=== PATIENT | female | born 1975 | race American Indian/Alaskan Native ===

== ENCOUNTER 2016-07-23 08:49 | Inpatient (IN) | payer BC ==
[2016-07-23] MEDS ORDERED: XYLOCAINE 1% 20 mL ONE (08:58)
[2016-07-23] MEDS ORDERED: XYLOCAINE 1% 20 mL INFILTRATI ONE (09:00)
[2016-07-23] MEDS ORDERED: DIPRIVAN 10 MG/ML 100 ML IV ONE (09:04)
[2016-07-23] MEDS ORDERED: DIPRIVAN 10 MG/ML IV ONE ×2 (09:16→12:00)
[2016-07-23] MEDS ORDERED: ZOFRAN ONE (09:35)
[2016-07-23] MEDS ORDERED: MORPHINE ONE (09:35)
[2016-07-23] MEDS ORDERED: MORPHINE IV ONE ×2 (09:44→12:06)
[2016-07-23] MEDS ORDERED: ZOFRAN IV ONE (09:44)
[2016-07-23 10:03] LABS: Basophils % (Auto) 0.4 % (0.0-1.8); Eosinophils % (Auto) 0.7 % (0.0-4.3); Hematocrit 39.6 % (30.3-42.9); Hemoglobin 13.7 gm/dl (10.1-14.3); Mean Corpuscular HGB Conc 35 % (30-34); Mean Corpuscular Hemoglobin 28 pg (28-32); Mean Corpuscular Volume 82 fl (79-97); Platelet Count 346 K/mm3 (140-440); Red Blood Count 4.84 M/mm3 (3.65-5.03); Red Cell Distribution Width 14.3 % (13.2-15.2); White Blood Count 14.9 K/mm3 (4.5-11.0)
[2016-07-23 10:13] LABS: INR 1.06 (0.87-1.13)
[2016-07-23 10:14] LABS: Partial Thromboplastin Time 30.2 Sec. (24.2-36.6)
--- NOTE | 2016-07-23 10:24 | Admit Criteria Form ---
Admission Criteria Documentation: PNEUMOTHORAX Clinical Indications for Admission to Inpatient Care (Place 'X' for any and all applicable criteria): Admission for ANY ONE of the following (1),(2): [ ]I. Pneumothorax caused by associated lung disease (eg, COPD, cystic fibrosis, lung cancer, AIDS)(6): [ ]II. Recurrent episode of pneumothorax9 [ ]III. Traumatic pneumothorax (10)(11)(12) [X ]IV. Tension pneumothorax [ ]V. Hypotension [ ]. Respiratory distress [ ]VII. Pneumothorax exacerbating significant comorbidity (eg, heart failure) [ ]VIII. Inpatient admission required rather than observation care (see Pneumothorax: Observation Care guideline as appropriate) because of ANY ONE of the following (13)(14) [ ]a) Symptomatic pneumothorax that is progressive or persistent [ ]b) Infection identified (eg, pneumonia) that requires inpatient management [ ]c) Severe pain requiring acute inpatient management [ ]d) Supplemental O2 or respiratory therapy for over 24 hrs that are performable only in acute inpatient setting [ ]e) Chest tube placement with active evacuation (eg, suction, drainage) (15) [ ]f) Epidural analgesia [ ]g) Other condition, treatment or monitoring requiring inpatient admission Extended stay beyond goal length of stay may be needed for (24) [ ]a) Secondary pneumothorax [ ]b) Pneumothorax assoc with trauma(eg, multiple fractured ribs) [ ]c) Recurrent episode of primary spontaneous pneumothorax. [ ]d) Older patients [ ]e) Tension pneumothorax [ ]f) Pulmonary edema [ ]g) Persistent air leak The original [employer] content created by [employer] has been revised. The portions of the content which have been revised are identified through the use of italic text or in bold, and [facility] has neither reviewed nor approved the modified material. All other unmodified content is copyright [facility]. Please see references footnoted in the original [employer] edition 2016 Admission Criteria Met: Yes
[2016-07-23 10:25] LABS: Creatine Kinase MB 2.6 ng/mL (0.0-4.0)
[2016-07-23 10:26] LABS: Alanine Aminotransferase 14 units/L (7-56); Albumin/Globulin Ratio 1.2 %; Alkaline Phosphatase 45 units/L (35-129); BUN/Creatinine Ratio 13.33; Bilirubin,Total 0.4 mg/dL (0.1-1.2); Blood Urea Nitrogen 8 mg/dL (7-17); Calcium 8.7 mg/dL (8.4-10.2); Carbon Dioxide 26 mmol/L (22-30); Chloride 95.1 mmol/L (98-107); Creatine Kinase 199 units/L (30-135); Glucose 101 mg/dL (65-100); Magnesium 1.9 mg/dL (1.7-2.3); Potassium 3.3 mmol/L (3.6-5.0); Sodium 134 mmol/L (137-145); Total Protein 7.4 g/dL (6.3-8.2)
--- NOTE | 2016-07-23 10:29 | XRay Report ---
PORTABLE CHEST INDICATION: Chest tube placement. COMPARISON: None similar at this institution. FINDINGS: Portable, frontal chest radiograph demonstrates a small bore left chest tube tip projecting left paratracheal near the apex. Fairly well expanded lungs without large pleural effusions, pneumothorax or CHF. Normal cardiomediastinal silhouette. EKG leads. Unremarkable bones. CONCLUSION: Left chest tube without evidence of a pneumothorax, as described. Please correlate. Thank you for the opportunity to participate in this patient's care.
[2016-07-23 10:33] LABS: Urine Drugs of Abuse Note Disclamer
[2016-07-23 10:34] LABS: Anion Gap 16 mmol/L; Bilirubin,Direct < 0.2 mg/dL (0-0.2); Bilirubin,Indirect 0.2 mg/dL
--- NOTE | 2016-07-23 14:14 | Emergency Department Report ---
ED Shortness of Breath HPI - General Chief Complaint: Dyspnea/Respdistress Stated Complaint: CHEST TIGHTNESS/STAS Time Seen by Provider: 07/23/16 09:36 Source: patient Mode of arrival: Ambulatory Limitations: No Limitations - History of Present Illness Initial Comments: The patient was transferred in her own private vehicle after she was found to have a pneumothorax at a [place] clinic. Indeed, she told me that she stopped to fill up her tank. Patient presents to this facility significantly tachycardic. However she was not yet hypoxic. She complained of left-sided chest pain since Tuesday. She could not pinpoint an acute onset of pain. She noted that when she woke up in the morning that she had chest discomfort and had been short of breath prior to that the night before. She's had some occasional cough but nothing productive. She denied fever. The chest pain was not radiating. The patient denied smoking marijuana but does smoke cigarettes. She's never had a pneumothorax before. Review patient's x-ray which she carried here on CT indicates that she had he an 80 percent pneumothorax with some midline shift and air on the contralateral side of the cardiac silhouette. Technically, it did reveal a tension pneumothorax. MD Complaint: shortness of breath, cough, chest pain -: days(s) Severity: moderate Quality: aching Consistency: constant Improves With: nothing Worsens With: nothing Associated Symptoms: denies other symptoms (except as above indicated) - Related Data Home Medications Medication Instructions Recorded Confirmed Last Taken Lisinopril/Hydrochlorothiazide 1 tab PO QDAY 07/23/16 07/23/16 Unknown [Zestoretic 20-25 mg] valACYclovir [Valtrex] 500 mg PO DAILY 07/23/16 07/23/16 Unknown Allergies Allergy/AdvReac Type Severity Reaction Status Date / Time codeine Allergy Anaphylaxis Verified 07/23/16 09:05 ED Review of Systems ROS: Stated complaint: CHEST TIGHTNESS/STAS Other details as noted in HPI Constitutional: denies: chills, fever Eyes: denies: eye pain, eye discharge, vision change ENT: denies: ear pain, throat pain Respiratory: cough, shortness of breath. denies: wheezing Cardiovascular: chest pain. denies: palpitations Endocrine: no symptoms reported Gastrointestinal: denies: abdominal pain, nausea, diarrhea Genitourinary: denies: urgency, dysuria, discharge Musculoskeletal: denies: back pain, joint swelling, arthralgia Skin: denies: rash, lesions Neurological: denies: headache, weakness, paresthesias Psychiatric: denies: anxiety, depression Hematological/Lymphatic: denies: easy bleeding, easy bruising ED Past Medical Hx - Past Medical History Hx Hypertension: Yes - Surgical History Additional Surgical History: D&C 2012 - Social History Smoking Status: Current Every Day Smoker - Medications Home Medications: Home Medications Medication Instructions Recorded Confirmed Last Taken Type Lisinopril/Hydrochlorothiazide 1 tab PO QDAY 07/23/16 07/23/16 Unknown History [Zestoretic 20-25 mg] valACYclovir [Valtrex] 500 mg PO DAILY 07/23/16 07/23/16 Unknown History ED Physical Exam - General Limitations: No Limitations General appearance: alert, in no apparent distress - Head Head exam: Present: atraumatic, normocephalic - Eye Eye exam: Present: normal appearance, PERRL, EOMI. Absent: scleral icterus - ENT ENT exam: Present: mucous membranes moist - Neck Neck exam: Present: normal inspection - Respiratory Respiratory exam: Present: decreased breath sounds (very decreased breath sounds on the left). Absent: respiratory distress - Cardiovascular Cardiovascular Exam: Present: normal rhythm, tachycardia. Absent: systolic murmur, diastolic murmur, rubs, gallop - GI/Abdominal GI/Abdominal exam: Present: soft, normal bowel sounds. Absent: distended, tenderness, guarding, rebound, rigid - Extremities Exam Extremities exam: Present: normal inspection - Back Exam Back exam: Present: normal inspection - Neurological Exam Neurological exam: Present: alert, oriented X3, CN II-XII intact. Absent: motor sensory deficit - Psychiatric Psychiatric exam: Present: normal affect, normal mood - Skin Skin exam: Present: warm, dry, intact, normal color. Absent: rash ED Course Vital Signs 07/23/16 07/23/16 07/23/16 09:01 09:07 09:20 Temperature [ 98.3 F Intra-Procedure ] Temperature [ Post-Procedure] Temperature [ Pre-Procedure] Pulse Rate 132 H Pulse Rate [ 128 H Intra-Procedure ] Pulse Rate [ Post-Procedure] Pulse Rate [Pre -Procedure] Respiratory 24 17 Rate Respiratory 24 Rate [Intra- Procedure] Respiratory Rate [Post- Procedure] Respiratory Rate [Pre- Procedure] Blood Pressure 142/79 [Intra- Procedure] Blood Pressure [Post-Procedure ] Blood Pressure [Pre-Procedure] Blood Pressure [Right] O2 Sat by Pulse 94 97 Oximetry O2 Sat by Pulse 98 Oximetry [ Intra-Procedure ] O2 Sat by Pulse Oximetry [Post -Procedure] O2 Sat by Pulse Oximetry [Pre- Procedure] 07/23/16 07/23/16 07/23/16 09:25 10:04 11:15 Temperature [ Intra-Procedure ] Temperature [ 98.1 F Post-Procedure] Temperature [ 97.3 F L Pre-Procedure] Pulse Rate 110 H Pulse Rate [ Intra-Procedure ] Pulse Rate [ 118 H Post-Procedure] Pulse Rate [Pre 130 H -Procedure] Respiratory 18 Rate Respiratory Rate [Intra- Procedure] Respiratory 18 Rate [Post- Procedure] Respiratory 22 Rate [Pre- Procedure] Blood Pressure [Intra- Procedure] Blood Pressure 138/77 [Post-Procedure ] Blood Pressure 140/69 [Pre-Procedure] Blood Pressure 139/75 [Right] O2 Sat by Pulse 99 Oximetry O2 Sat by Pulse Oximetry [ Intra-Procedure ] O2 Sat by Pulse 98 Oximetry [Post -Procedure] O2 Sat by Pulse 97 Oximetry [Pre- Procedure] 07/23/16 12:16 Temperature [ Intra-Procedure ] Temperature [ Post-Procedure] Temperature [ Pre-Procedure] Pulse Rate 99 H Pulse Rate [ Intra-Procedure ] Pulse Rate [ Post-Procedure] Pulse Rate [Pre -Procedure] Respiratory 16 Rate Respiratory Rate [Intra- Procedure] Respiratory Rate [Post- Procedure] Respiratory Rate [Pre- Procedure] Blood Pressure [Intra- Procedure] Blood Pressure [Post-Procedure ] Blood Pressure [Pre-Procedure] Blood Pressure 128/75 [Right] O2 Sat by Pulse 100 Oximetry O2 Sat by Pulse Oximetry [ Intra-Procedure ] O2 Sat by Pulse Oximetry [Post -Procedure] O2 Sat by Pulse Oximetry [Pre- Procedure] - Chest Tube Chest Tube Location: fifth interspace Size of Palestinian Tube (cm): 0 (Cook catheter) Chest Tube Procedure: betadine prep Anesthesia: 1% Lidocaine w/ Epi Volume Anesthetic (ccs): 7 [place] of Air [place]: No Number of Attempts: 1 Tube Sutured to Skin: Yes Post Procedure CXR?: Yes (reinflation 100%) ED Medical Decision Making - Lab Data Result diagrams: 07/23/16 09:50 07/23/16 09:50 Laboratory Results - last 24 hr 07/23/16 07/23/16 07/23/16 09:50 09:50 09:50 WBC 14.9 H RBC 4.84 Hgb 13.7 Hct 39.6 MCV 82 MCH 28 MCHC 35 H RDW 14.3 Plt Count 346 Lymph % (Auto) 4.8 L [place] % (Auto) 7.5 H Eos % (Auto) 0.7 Baso % (Auto) 0.4 Lymph # 0.7 L [place] # 1.1 H Eos # 0.1 Baso # 0.1 Seg Neutrophils % 86.6 H Seg Neutrophils # 12.9 H PT 13.7 INR 1.06 APTT 30.2 Sodium 134 L Potassium 3.3 L Chloride 95.1 L Carbon Dioxide 26 Anion Gap 16 BUN 8 Creatinine 0.6 L Estimated GFR > 60 BUN/Creatinine Ratio 13.33 Glucose 101 H Calcium 8.7 Magnesium 1.9 Total Bilirubin 0.4 Direct Bilirubin < 0.2 Indirect Bilirubin 0.2 AST 23 ALT 14 Alkaline Phosphatase 45 Total Creatine Kinase 199 H CK-MB (CK-2) 2.6 CK-MB (CK-2) Rel Index 1.3 Troponin T < 0.010 Total Protein 7.4 Albumin 4.0 Albumin/Globulin Ratio 1.2 Urine Opiates Screen Urine Methadone Screen Ur Barbiturates Screen Ur Phencyclidine Scrn Ur Amphetamines Screen U Benzodiazepines Scrn Urine Cocaine Screen U Marijuana (THC) Screen Drugs of Abuse Note 07/23/16 10:31 WBC RBC Hgb Hct MCV MCH MCHC RDW Plt Count Lymph % (Auto) [place] % (Auto) Eos % (Auto) Baso % (Auto) Lymph # [place] # Eos # Baso # Seg Neutrophils % Seg Neutrophils # PT INR APTT Sodium Potassium Chloride Carbon Dioxide Anion Gap BUN Creatinine Estimated GFR BUN/Creatinine Ratio Glucose Calcium Magnesium Total Bilirubin Direct Bilirubin Indirect Bilirubin AST ALT Alkaline Phosphatase Total Creatine Kinase CK-MB (CK-2) CK-MB (CK-2) Rel Index Troponin T Total Protein Albumin Albumin/Globulin Ratio Urine Opiates Screen Presumptive negative Urine Methadone Screen Presumptive negative Ur Barbiturates Screen Presumptive negative Ur Phencyclidine Scrn Presumptive negative Ur Amphetamines Screen Presumptive negative U Benzodiazepines Scrn Presumptive negative Urine Cocaine Screen Presumptive negative U Marijuana (THC) Screen Presumptive negative Drugs of Abuse Note Disclamer - EKG Data -: EKG Interpreted by Ia EKG shows normal: sinus rhythm, axis, intervals, QRS complexes, ST-T waves Rate: tachycardia - EKG Data Interpretation: nonspecific ST-T wave charlene - Radiology Data interpreted by me: Post Cook catheter insertion shows complete reinflation of the patient's left lung. Critical Care Time: Yes Critical care time in (mins) excluding proc time.: 35 Critical care attestation.: If time is entered above; I have spent that time in minutes in the direct care of this critically ill patient, excluding procedure time. ED Disposition Clinical Impression: Tension pneumothorax, Hypokalemia Disposition: OP ADMITTED IP TO THIS HOSP Is pt being admited?: Yes Does the pt Need Aspirin: Yes Condition: Stable Time of Disposition: 14:21
--- NOTE | 2016-07-23 14:18 | Event Note ---
Date: 07/23/16 See H/p in reports L pneumothorax COPD
[2016-07-23] MEDS ORDERED: K-DUR PO ONE (14:22)
[2016-07-23] MEDS ORDERED: BABY ASPIRIN PO ONE (14:22)
[2016-07-23] MEDS ORDERED: MILK OF MAGNESIA PO PRN (14:25)
[2016-07-23] MEDS ORDERED: DULCOLAX PR PRN (14:25)
[2016-07-23] MEDS ORDERED: ZOFRAN IV PRN (14:25)
[2016-07-23] MEDS ORDERED: NON-FORMULARY (Lisinopril/Hydrochlorothiazide [Zestoretic 20-25 Mg] 1 TAB) PO SCH (14:30)
[2016-07-23] MEDS: D5NS 1,000 ML IV SCH (14:59)
[2016-07-23] MEDS ORDERED: HCTZ ONE (15:00)
[2016-07-23] MEDS ORDERED: ZESTRIL ONE (15:00)
[2016-07-23] MEDS ORDERED: DILAUDID ONE (15:43)
[2016-07-23] MEDS: DILAUDID IV PRN ×2 (15:47→20:29)
[2016-07-23] MEDS: COZAAR PO SCH (15:48)
[2016-07-23] MEDS: TYLENOL PO PRN (20:30)
[2016-07-24] MEDS: DILAUDID IV PRN ×2 (05:56→15:02)
--- NOTE | 2016-07-24 09:24 | XRay Report ---
Single view chest: Compared to 07/23/16. History: Hypertension. Findings: Normal cardiomediastinal silhouette. Trachea is midline. No consolidation, pneumothorax or pleural effusion. Impression: No acute cardiopulmonary findings
[2016-07-24] MEDS: COZAAR PO SCH (09:43)
[2016-07-24] MEDS: HCTZ PO SCH (09:43)
[2016-07-24] MEDS: ZESTRIL PO SCH (09:43)
[2016-07-24] MEDS: TYLENOL PO PRN ×2 (09:48→17:36)
[2016-07-24] MEDS ORDERED: TORADOL IV ONE (17:27)
--- NOTE | 2016-07-24 17:37 | Consultation ---
History of Present Illness Consult date: 07/24/16 Requesting physician: RICARDO MARKS Reason for consult: pneumothorax (tension at the time of admission) History of present illness: - History of Present Illness Initial Comments: The patient was transferred in her own private vehicle after she was found to have a pneumothorax at a [place] clinic. Indeed, she told me that she stopped to fill up her tank. Patient presents to this facility significantly tachycardic. However she was not yet hypoxic. She complained of left-sided chest pain since Tuesday. She could not pinpoint an acute onset of pain. She noted that when she woke up in the morning that she had chest discomfort and had been short of breath prior to that the night before. She's had some occasional cough but nothing productive. She denied fever. The chest pain was not radiating. The patient denied smoking marijuana but does smoke cigarettes and hookah. She's never had a pneumothorax before. She does have a history of asthma associated with allergies. There is a history of lupus in the family. 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 Technically, it did reveal a tension pneumothorax. MD Complaint: shortness of breath, cough, chest pain -: days(s) Severity: moderate Quality: aching Consistency: constant Improves With: nothing Worsens With: nothing Associated Symptoms: denies other symptoms (except as above indicated) - Related Data Home Medications Medication Instructions Recorded Confirmed Last Taken Lisinopril/Hydrochlorothiazide 1 tab PO QDAY 07/23/16 07/23/16 Unknown [Zestoretic 20-25 mg] valACYclovir [Valtrex] 500 mg PO DAILY 07/23/16 07/23/16 Unknown Allergies Allergy/AdvReac Type Severity Reaction Status Date / Time codeine Allergy Anaphylaxis Verified 07/23/16 09:05 ROS: Stated complaint: CHEST TIGHTNESS/STAS Other details as noted in HPI Constitutional: denies: chills, fever Eyes: denies: eye pain, eye discharge, vision change ENT: denies: ear pain, throat pain Respiratory: cough, shortness of breath, wheezing Cardiovascular: chest pain. denies: palpitations Endocrine: no symptoms reported Gastrointestinal: denies: abdominal pain, nausea, diarrhea Genitourinary: denies: urgency, dysuria, discharge Musculoskeletal: denies: back pain, joint swelling, arthralgia Skin: denies: rash, lesions Neurological: denies: headache, weakness, paresthesias Psychiatric: denies: anxiety, depression Hematological/Lymphatic: denies: easy bleeding, easy bruising ED Past Medical Hx - Past Medical History Hx Hypertension: Yes Asthma Allergic rhinitis - Surgical History Additional Surgical History: D&C 2012 - Social History Smoking Status: Current Every Day Smoker- SMOKES 4-5 EVERY DAY: ALSO SMOKED HOOKAH - FAMILY HISTORY Parents are alive and well. She has a sister with lupus, her grandmother had COPD related to cigarette smoking. - Medications Home Medications: Home Medications Medication Instructions Recorded Confirmed Last Taken Type Lisinopril/Hydrochlorothiazide 1 tab PO QDAY 07/23/16 07/23/16 Unknown History [Zestoretic 20-25 mg] valACYclovir [Valtrex] 500 mg PO DAILY 07/23/16 07/23/16 Unknown History PHYSICAL EXAMINATION Limitations: No Limitations General appearance: alert, in no apparent distress - Head Head exam: Present: atraumatic, normocephalic - Eye Eye exam: Present: normal appearance, PERRL, EOMI. Absent: scleral icterus - ENT ENT exam: Present: mucous membranes moist - Neck Neck exam: Present: normal inspection - Respiratory Respiratory exam: Present: decreased breath sounds (very decreased breath sounds on the left). Absent: respiratory distress - Cardiovascular Cardiovascular Exam: Present: normal rhythm, tachycardia. Absent: systolic murmur, diastolic murmur, rubs, gallop - GI/Abdominal GI/Abdominal exam: Present: soft, normal bowel sounds. Absent: distended, tenderness, guarding, rebound, rigid - Extremities Exam Extremities exam: Present: normal inspection - Back Exam Back exam: Present: normal inspection - Neurological Exam Neurological exam: Present: alert, oriented X3, CN II-XII intact. Absent: motor sensory deficit - Psychiatric Psychiatric exam: Present: normal affect, normal mood - Skin Skin exam: Present: warm, dry, intact, normal color. Absent: rash Medications and Allergies Allergies Allergy/AdvReac Type Severity Reaction Status Date / Time codeine Allergy Anaphylaxis Verified 07/23/16 09:05 Home Medications Medication Instructions Recorded Confirmed Last Taken Type Lisinopril/Hydrochlorothiazide 1 tab PO QDAY 07/23/16 07/23/16 Unknown History [Zestoretic 20-25 mg] valACYclovir [Valtrex] 500 mg PO DAILY 07/23/16 07/23/16 Unknown History Active Meds: Active Medications Acetaminophen (Tylenol) 650 mg PO Q4H PRN PRN Reason: Pain MILD(1-3)/Fever >100.5/ROSALES Last Admin: 07/24/16 09:48 Dose: 650 mg Albuterol/Ipratropium (Duoneb 0.5 Mg-3 Mg/3 Ml Soln) 1 ampul IH Q6HRT [facility] Bisacodyl (Dulcolax) 10 mg MO QDAY PRN PRN Reason: Constipation unrelieved by MOM Hydrochlorothiazide (Hctz) 25 mg PO QDAY [facility] Last Admin: 07/24/16 09:43 Dose: 25 mg Hydromorphone HCl (Dilaudid) 0.5 mg IV Q3H PRN PRN Reason: Pain , Severe (7-10) Last Admin: 07/24/16 15:02 Dose: 0.5 mg Dextrose/Sodium Chloride (D5ns) 1,000 mls @ 75 mls/hr IV DIRECT [facility] Last Admin: 07/23/16 14:59 Dose: 75 mls/hr Influenza Virus Vaccine Quadrival (Fluarix Quad [id number](36 Mos+)) 60 mcg IM .ONCE ONE Stop: 07/25/16 12:01 Lisinopril (Zestril) 20 mg PO QDAY [facility] Last Admin: 07/24/16 09:43 Dose: 20 mg Losartan Potassium (Cozaar) 100 mg PO QDAY [facility] Last Admin: 07/24/16 09:43 Dose: Not Given Magnesium Hydroxide (Milk Of Magnesia) 30 ml PO Q4H PRN PRN Reason: Constipation Ondansetron HCl (Zofran) 4 mg IV Q8H PRN PRN Reason: N/V unrelieved by Reglan Oxycodone/Acetaminophen (Percocet 5/325) 1 tab PO Q6H PRN PRN Reason: Pain, Moderate (4-6) Pneumococcal 13-Valent Conj Vacc (Prevnar 13) 0.5 ml IM .ONCE ONE Stop: 07/25/16 12:01 Physical Examination Vital signs: Vital Signs Pulse Resp Pulse Ox 132 H 24 94 07/23/16 09:01 07/23/16 09:01 07/23/16 09:01 Results - Laboratory Findings CBC and BMP: 07/23/16 09:50 07/23/16 09:50 PT/INR, D-dimer PT 13.7 Sec. (12.2-14.9) 07/23/16 09:50 INR 1.06 (0.87-1.13) 07/23/16 09:50 Assessment and Plan - Patient Problems (1) Tension pneumothorax Current Visit: Yes Status: Acute Plan to address problem: Chest tube to negative wall pressure - 20cm, Get follow CXR in the morning or CTchest to evaluate for parenchymal disease and also for full re-expansion of the lung. When fully expanded with place Pleurovac to water seal and follow up with serial CXRs Analgesia VTE prophylaxis Bronchodilators Cough suppressants as needed Smoking cessation counselling done at the bedside. Also explained the harmful effects of the hookah too. Nicotine withdrawal precautions. Get PAULINO with reflex to rule out any underlying parenchymal disease, especially with a family history of lupus. Explaine she cannot fly or scuba dive for the next 6 months. (2) Tobacco abuse disorder Current Visit: Yes Status: Chronic Plan to address problem: Smoking cessation counselling. Nicotine withdrawal precautions (3) Asthma, extrinsic Current Visit: Yes Status: Acute Plan to address problem: Bronchodilators and inhaled corticosteroids
[2016-07-24] MEDS: DUONEB 0.5 MG-3 MG/3 ML SOLN IH SCH (19:32)
[2016-07-24] MEDS: D5NS 1,000 ML IV SCH (20:59)
[2016-07-24] MEDS: PERCOCET 5/325 PO PRN (21:52)
[2016-07-25] MEDS: DUONEB 0.5 MG-3 MG/3 ML SOLN IH SCH ×4 (01:45→19:49)
[2016-07-25] MEDS: DILAUDID IV PRN ×2 (05:18→15:30)
--- NOTE | 2016-07-25 08:04 | Progress Note ---
Assessment and Plan - Patient Problems (1) Acute respiratory failure Current Visit: Yes Status: Resolved Plan to address problem: Secondary to pneumothorax. S/P chest tube placement. (2) Tension pneumothorax Current Visit: Yes Status: Acute Plan to address problem: Chest tube in place, No air leak. (3) Asthma, extrinsic Current Visit: Yes Status: Acute Plan to address problem: supplemental oxygen, nebs prn. (4) Tobacco abuse disorder Current Visit: Yes Status: Chronic (5) DVT prophylaxis Current Visit: Yes Status: Acute History Interval history: Pt sitting on side of bed, Pt denies any new complaints. Pt states that she has cough, Pt denies shortness of breath. Hospitalist Physical - Constitutional Vitals: Temp Pulse Resp BP Pulse Ox 99.2 F 101 H 18 109/66 100 07/25/16 05:21 07/25/16 05:21 07/25/16 05:21 07/25/16 05:21 07/25/16 05:21 General appearance: Present: no acute distress, obese - EENT Eyes: Present: PERRL ENT: hearing intact - Neck Neck: Present: supple - Respiratory Respiratory effort: normal Respiratory: bilateral: diminished - Cardiovascular Rhythm: regular Heart Sounds: Present: S1 & S2 - Extremities Extremities: no ischemia Peripheral Pulses: within normal limits - Abdominal General gastrointestinal: soft, non-tender, non-distended, no hepatomegaly, no splenomegaly - Integumentary Integumentary: Present: clear, warm, dry - Psychiatric Psychiatric: appropriate mood/affect, intact judgment & insight, memory intact, cooperative Results - Labs CBC & Chem 7: 07/23/16 09:50 07/23/16 09:50 Labs: Laboratory Last Values WBC 14.9 K/mm3 (4.5-11.0) H 07/23/16 09:50 RBC 4.84 M/mm3 (3.65-5.03) 07/23/16 09:50 Hgb 13.7 gm/dl (10.1-14.3) 07/23/16 09:50 Hct 39.6 % (30.3-42.9) 07/23/16 09:50 MCV 82 fl (79-97) 07/23/16 09:50 MCH 28 pg (28-32) 07/23/16 09:50 MCHC 35 % (30-34) H 07/23/16 09:50 RDW 14.3 % (13.2-15.2) 07/23/16 09:50 Plt Count 346 K/mm3 (140-440) 07/23/16 09:50 Lymph % (Auto) 4.8 % (13.4-35.0) L 07/23/16 09:50 [place] % (Auto) 7.5 % (0.0-7.3) H 07/23/16 09:50 Eos % (Auto) 0.7 % (0.0-4.3) 07/23/16 09:50 Baso % (Auto) 0.4 % (0.0-1.8) 07/23/16 09:50 Lymph # 0.7 K/mm3 (1.2-5.4) L 07/23/16 09:50 [place] # 1.1 K/mm3 (0.0-0.8) H 07/23/16 09:50 Eos # 0.1 K/mm3 (0.0-0.4) 07/23/16 09:50 Baso # 0.1 K/mm3 (0.0-0.1) 07/23/16 09:50 Seg Neutrophils % 86.6 % (40.0-70.0) H 07/23/16 09:50 Seg Neutrophils # 12.9 K/mm3 (1.8-7.7) H 07/23/16 09:50 PT 13.7 Sec. (12.2-14.9) 07/23/16 09:50 INR 1.06 (0.87-1.13) 07/23/16 09:50 APTT 30.2 Sec. (24.2-36.6) 07/23/16 09:50 Sodium 134 mmol/L (137-145) L 07/23/16 09:50 Potassium 3.3 mmol/L (3.6-5.0) L 07/23/16 09:50 Chloride 95.1 mmol/L (98-107) L 07/23/16 09:50 Carbon Dioxide 26 mmol/L (22-30) 07/23/16 09:50 Anion Gap 16 mmol/L 07/23/16 09:50 BUN 8 mg/dL (7-17) 07/23/16 09:50 Creatinine 0.6 mg/dL (0.7-1.2) L 07/23/16 09:50 Estimated GFR > 60 ml/min 07/23/16 09:50 BUN/Creatinine Ratio 13.33 % 07/23/16 09:50 Glucose 101 mg/dL (65-100) H 07/23/16 09:50 Calcium 8.7 mg/dL (8.4-10.2) 07/23/16 09:50 Magnesium 1.9 mg/dL (1.7-2.3) 07/23/16 09:50 Total Bilirubin 0.4 mg/dL (0.1-1.2) 07/23/16 09:50 Direct Bilirubin < 0.2 mg/dL (0-0.2) 07/23/16 09:50 Indirect Bilirubin 0.2 mg/dL 07/23/16 09:50 AST 23 units/L (5-40) 07/23/16 09:50 ALT 14 units/L (7-56) 07/23/16 09:50 Alkaline Phosphatase 45 units/L (35-129) 07/23/16 09:50 Total Creatine Kinase 199 units/L (30-135) H 07/23/16 09:50 CK-MB (CK-2) 2.6 ng/mL (0.0-4.0) 07/23/16 09:50 CK-MB (CK-2) Rel Index 1.3 (0-4) 07/23/16 09:50 Troponin T < 0.010 ng/mL (0.00-0.029) 07/23/16 09:50 Total Protein 7.4 g/dL (6.3-8.2) 07/23/16 09:50 Albumin 4.0 g/dL (3.9-5) 07/23/16 09:50 Albumin/Globulin Ratio 1.2 % 07/23/16 09:50 Urine Opiates Screen Presumptive negative 07/23/16 10:31 Urine Methadone Screen Presumptive negative 07/23/16 10:31 Ur Barbiturates Screen Presumptive negative 07/23/16 10:31 Ur Phencyclidine Scrn Presumptive negative 07/23/16 10:31 Ur Amphetamines Screen Presumptive negative 07/23/16 10:31 U Benzodiazepines Scrn Presumptive negative 07/23/16 10:31 Urine Cocaine Screen Presumptive negative 07/23/16 10:31 U Marijuana (THC) Screen Presumptive negative 07/23/16 10:31 Drugs of Abuse Note Disclamer 07/23/16 10:31 Rheumatoid Factor 11 IU/ml (0-13) 07/24/16 18:09
--- NOTE | 2016-07-25 09:33 | Cat Scan Report ---
FINAL REPORT PROCEDURE: CT CHEST WO CON TECHNIQUE: Axial sections and coronal and sagittal reformatted images were viewed through the chest. HISTORY: pneumothorax COMPARISON: None FINDINGS: There is a left-sided chest tube in place, tube tip at the left thoracic apex medially bordering the proximal thoracic esophagus. Lack of IV contrast limits evaluation of the solid organs. There is no gross hilar or mediastinal lymphadenopathy. The heart is normal in size. There is no pericardial effusion. Trace right larger than left pleural fluid is present as well as right larger than left posterior basilar subsegmental atelectasis. Subsegmental atelectasis and or infiltrate or contusion is present of the more superior left lower lobe as well as small of the left upper lobe, right upper, and right middle lobe. No pneumothorax is seen. There is no acute osseous abnormality. Incidental views of the upper abdomen are unremarkable. IMPRESSION: Left chest tube in place. No pneumothorax. Small bilateral airspace disease subsegmental atelectasis with or without associated infiltrate and pulmonary contusion. Trace right larger than left pleural effusions.
[2016-07-25] MEDS: ZESTRIL PO SCH (10:00)
[2016-07-25] MEDS: COZAAR PO SCH (10:00)
[2016-07-25] MEDS: HCTZ PO SCH (10:02)
[2016-07-25] MEDS: TYLENOL PO PRN (10:05)
--- NOTE | 2016-07-25 10:44 | Progress Note ---
Assessment and Plan - Patient Problems (1) Tension pneumothorax Current Visit: Yes Status: Acute Plan to address problem: Chest tube to negative wall pressure - 20cm, Get follow CXR in the morning or CTchest to evaluate for parenchymal disease and also for full re-expansion of the lung. When fully expanded with place Pleurovac to water seal and follow up with serial CXRs Analgesia VTE prophylaxis Bronchodilators Cough suppressants as needed Smoking cessation counselling done at the bedside. Also explained the harmful effects of the hookah too. Nicotine withdrawal precautions. Get PAULINO with reflex to rule out any underlying parenchymal disease, especially with a family history of lupus. Explaine she cannot fly or scuba dive for the next 6 months. (2) Tobacco abuse disorder Current Visit: Yes Status: Chronic Plan to address problem: Smoking cessation counselling. Nicotine withdrawal precautions (3) Asthma, extrinsic Current Visit: Yes Status: Acute Plan to address problem: Bronchodilators and inhaled corticosteroids Subjective Date of service: 07/25/16 Objective Vital Signs - 12hr 07/25/16 07/25/16 07/25/16 00:14 01:45 01:58 Temperature 98.9 F Pulse Rate [ 95 H 92 H Anterior Bilateral] Pulse Rate [ Apical] Pulse Rate [ 58 L From Monitor] Pulse Rate [ Right] Respiratory 18 Rate Respiratory 18 18 Rate [Anterior Bilateral] Blood Pressure 128/64 [Right Arm] O2 Sat by Pulse 94 Oximetry 07/25/16 07/25/16 07/25/16 05:21 09:18 10:00 Temperature 99.2 F 98.2 F Pulse Rate [ Anterior Bilateral] Pulse Rate [ 101 H Apical] Pulse Rate [ From Monitor] Pulse Rate [ 107 H Right] Respiratory 18 20 Rate Respiratory Rate [Anterior Bilateral] Blood Pressure 109/66 117/73 [Right Arm] O2 Sat by Pulse 100 94 97 Oximetry 07/25/16 07/25/16 07/25/16 10:05 10:18 10:28 Temperature Pulse Rate [ 100 H 102 H Anterior Bilateral] Pulse Rate [ Apical] Pulse Rate [ From Monitor] Pulse Rate [ Right] Respiratory 20 Rate Respiratory 20 18 Rate [Anterior Bilateral] Blood Pressure [Right Arm] O2 Sat by Pulse Oximetry CBC and BMP: 07/23/16 09:50 07/23/16 09:50 ABG, PT/INR, D-dimer: PT/INR, D-dimer PT 13.7 Sec. (12.2-14.9) 07/23/16 09:50 INR 1.06 (0.87-1.13) 07/23/16 09:50
[2016-07-25] MEDS: D5NS 1,000 ML IV SCH (11:17)
[2016-07-25] MEDS ORDERED: FLUARIX QUAD 2016-2017(36 MOS+) IM ONE (12:00)
[2016-07-25] MEDS ORDERED: PREVNAR 13 IM ONE (12:00)
[2016-07-25] MEDS: ZITHROMAX PO SCH (13:08)
--- NOTE | 2016-07-25 19:08 | Progress Note ---
Assessment and Plan - Patient Problems (1) Acute respiratory failure Current Visit: Yes Status: Resolved Plan to address problem: Secondary to pneumothorax. S/P chest tube placement. (2) Tension pneumothorax Current Visit: Yes Status: Acute Plan to address problem: Chest tube in place, No air leak. (3) Asthma, extrinsic Current Visit: Yes Status: Acute Plan to address problem: supplemental oxygen, nebs prn. (4) Tobacco abuse disorder Current Visit: Yes Status: Chronic (5) Obesity (BMI 30.0-34.9) Current Visit: Yes Status: Acute Plan to address problem: Pt counseled. (6) DVT prophylaxis Current Visit: Yes Status: Acute History Interval history: Pt sitting on side of bed, Pt denies any new complaints. Pt states that she has cough, Pt denies shortness of breath. Left chest tube in place. Hospitalist Physical - Constitutional Vitals: Temp Pulse Resp BP Pulse Ox 98.2 F 98 H 18 117/73 97 07/25/16 09:18 07/25/16 15:24 07/25/16 10:28 07/25/16 09:18 07/25/16 10:00 General appearance: Present: no acute distress, obese - EENT Eyes: Present: PERRL, EOM intact ENT: hearing intact - Neck Neck: Present: supple - Respiratory Respiratory effort: normal Respiratory: bilateral: diminished - Cardiovascular Rhythm: regular Heart Sounds: Present: S1 & S2 - Extremities Extremities: no ischemia Peripheral Pulses: within normal limits - Abdominal General gastrointestinal: soft, non-tender, non-distended - Integumentary Integumentary: Present: clear, dry - Psychiatric Psychiatric: appropriate mood/affect, cooperative - Neurologic Neurologic: CNII-XII intact Results - Labs CBC & Chem 7: 07/23/16 09:50 07/23/16 09:50 Labs: Laboratory Last Values WBC 14.9 K/mm3 (4.5-11.0) H 07/23/16 09:50 RBC 4.84 M/mm3 (3.65-5.03) 07/23/16 09:50 Hgb 13.7 gm/dl (10.1-14.3) 07/23/16 09:50 Hct 39.6 % (30.3-42.9) 07/23/16 09:50 MCV 82 fl (79-97) 07/23/16 09:50 MCH 28 pg (28-32) 07/23/16 09:50 MCHC 35 % (30-34) H 07/23/16 09:50 RDW 14.3 % (13.2-15.2) 07/23/16 09:50 Plt Count 346 K/mm3 (140-440) 07/23/16 09:50 Lymph % (Auto) 4.8 % (13.4-35.0) L 07/23/16 09:50 [place] % (Auto) 7.5 % (0.0-7.3) H 07/23/16 09:50 Eos % (Auto) 0.7 % (0.0-4.3) 07/23/16 09:50 Baso % (Auto) 0.4 % (0.0-1.8) 07/23/16 09:50 Lymph # 0.7 K/mm3 (1.2-5.4) L 07/23/16 09:50 [place] # 1.1 K/mm3 (0.0-0.8) H 07/23/16 09:50 Eos # 0.1 K/mm3 (0.0-0.4) 07/23/16 09:50 Baso # 0.1 K/mm3 (0.0-0.1) 07/23/16 09:50 Seg Neutrophils % 86.6 % (40.0-70.0) H 07/23/16 09:50 Seg Neutrophils # 12.9 K/mm3 (1.8-7.7) H 07/23/16 09:50 PT 13.7 Sec. (12.2-14.9) 07/23/16 09:50 INR 1.06 (0.87-1.13) 07/23/16 09:50 APTT 30.2 Sec. (24.2-36.6) 07/23/16 09:50 Sodium 134 mmol/L (137-145) L 07/23/16 09:50 Potassium 3.3 mmol/L (3.6-5.0) L 07/23/16 09:50 Chloride 95.1 mmol/L (98-107) L 07/23/16 09:50 Carbon Dioxide 26 mmol/L (22-30) 07/23/16 09:50 Anion Gap 16 mmol/L 07/23/16 09:50 BUN 8 mg/dL (7-17) 07/23/16 09:50 Creatinine 0.6 mg/dL (0.7-1.2) L 07/23/16 09:50 Estimated GFR > 60 ml/min 07/23/16 09:50 BUN/Creatinine Ratio 13.33 % 07/23/16 09:50 Glucose 101 mg/dL (65-100) H 07/23/16 09:50 Calcium 8.7 mg/dL (8.4-10.2) 07/23/16 09:50 Magnesium 1.9 mg/dL (1.7-2.3) 07/23/16 09:50 Total Bilirubin 0.4 mg/dL (0.1-1.2) 07/23/16 09:50 Direct Bilirubin < 0.2 mg/dL (0-0.2) 07/23/16 09:50 Indirect Bilirubin 0.2 mg/dL 07/23/16 09:50 AST 23 units/L (5-40) 07/23/16 09:50 ALT 14 units/L (7-56) 07/23/16 09:50 Alkaline Phosphatase 45 units/L (35-129) 07/23/16 09:50 Total Creatine Kinase 199 units/L (30-135) H 07/23/16 09:50 CK-MB (CK-2) 2.6 ng/mL (0.0-4.0) 07/23/16 09:50 CK-MB (CK-2) Rel Index 1.3 (0-4) 07/23/16 09:50 Troponin T < 0.010 ng/mL (0.00-0.029) 07/23/16 09:50 Total Protein 7.4 g/dL (6.3-8.2) 07/23/16 09:50 Albumin 4.0 g/dL (3.9-5) 07/23/16 09:50 Albumin/Globulin Ratio 1.2 % 07/23/16 09:50 Urine Opiates Screen Presumptive negative 07/23/16 10:31 Urine Methadone Screen Presumptive negative 07/23/16 10:31 Ur Barbiturates Screen Presumptive negative 07/23/16 10:31 Ur Phencyclidine Scrn Presumptive negative 07/23/16 10:31 Ur Amphetamines Screen Presumptive negative 07/23/16 10:31 U Benzodiazepines Scrn Presumptive negative 07/23/16 10:31 Urine Cocaine Screen Presumptive negative 07/23/16 10:31 U Marijuana (THC) Screen Presumptive negative 07/23/16 10:31 Drugs of Abuse Note Disclamer 07/23/16 10:31 Rheumatoid Factor 11 IU/ml (0-13) 07/24/16 18:09
[2016-07-25] MEDS: PERCOCET 5/325 PO PRN (21:10)
[2016-07-26] MEDS: DUONEB 0.5 MG-3 MG/3 ML SOLN IH SCH ×4 (02:40→19:19)
--- NOTE | 2016-07-26 07:15 | History and Physical Report ---
ADDENDUM No dysuria. No flank pain. MUSCULOSKELETAL: No joint pains. No muscle pains. CENTRAL NERVOUS SYSTEM: No syncope, no seizures. SKIN: No rashes. PSYCHIATRIC: No depression, no suicidal tendencies. HEMATOLOGIC AND LYMPHATIC: No bruising. No lymphadenopathy. PHYSICAL EXAMINATION: GENERAL: Middle-aged female, cooperative during examination. VITAL SIGNS: Blood pressure is 119/68. Pulse ox is 90. Temperature is 98.5, heart rate 100. HEENT: Unremarkable. NECK: Supple, no lymphadenopathy, no thyromegaly. LUNGS: Clear to auscultation and percussion. ___. No air entry on the left side. CARDIOVASCULAR: S1, S2 heard. No gallop, no murmur, no rub. Apical impulse in left fifth intercostal space and midclavicular line. ABDOMEN: Soft and benign. No hepatosplenomegaly. No guarding, no rigidity. Hernial orifices are normal. EXTREMITIES: Good pedal pulses. No pedal edema. CENTRAL NERVOUS SYSTEM: Alert and oriented x4. Nonfocal exam. SKIN: Normal. LABORATORY DATA: White count is 14,900, H and H is 13.7 and 39.7, platelet count is 346,000. Potassium is 3.3, sodium is 134, chloride is 95, BUN and creatinine 8 and 0.6, and total CK is 199. CK-MB is 2.6, CK-MB relative index is 1.3. Total protein is 7.4, albumin is 4.0. Drug screen is negative. Chest x-ray shows left-sided pneumothorax. ASSESSMENT AND PLAN: 1. Left-sided pneumothorax. Chest tube inserted. The patient to continue chest tube with underwater seal. Pulmonary consult requested. 2. Hypertension. Continue lisinopril/hydrochlorothiazide. 3. Deep venous thrombosis prophylaxis. Continue Lovenox 40 mg subcutaneous daily. JOB# [id number] VSM/NTS
[2016-07-26] MEDS: COZAAR PO SCH (10:04)
[2016-07-26] MEDS: ZESTRIL PO SCH (10:04)
[2016-07-26] MEDS: ZITHROMAX PO SCH (10:04)
[2016-07-26] MEDS: HCTZ PO SCH (10:04)
[2016-07-26] MEDS ORDERED: FLUARIX QUAD 2016-2017(36 MOS+) IM ONE (12:00)
[2016-07-26] MEDS ORDERED: PREVNAR 13 IM ONE (12:00)
[2016-07-26] MEDS: DILAUDID IV PRN (13:29)
--- NOTE | 2016-07-26 13:41 | Progress Note ---
Assessment and Plan Patient still having cough. No acute respiratory distress. O2 satuarationO2 satuaration 100% on 4 litres O2.Todays chest xray pending. - Patient Problems (1) Tension pneumothorax Current Visit: Yes Status: Acute Plan to address problem: Patient has left chest tube placement.Left lung is expanded. Bilateral breathsounds heard. Todays chest xray still pending. Continue Chest tube to wall suction. (2) Asthma, extrinsic Current Visit: Yes Status: Acute Qualifiers: Qualified Code(s): J45.52 - Severe persistent asthma with status asthmaticus Plan to address problem: Albuterol/atrovent aerosol treatments. (3) Tobacco abuse disorder Current Visit: Yes Status: Chronic Plan to address problem: Counselled to stop smoking. (4) Acute bronchitis Current Visit: Yes Status: Acute Plan to address problem: Patient is on Zithromax. Subjective Date of service: 07/26/16 Interval history: Patient still having cough. No acute respiratory distress. O2 satuarationO2 satuaration 100% on 4 litres O2.Todays chest xray pending. Objective Vital Signs - 12hr 07/26/16 07/26/16 07/26/16 01:57 02:00 02:52 Temperature 98.2 F Pulse Rate Pulse Rate [ 106 H 109 H Anterior Bilateral] Pulse Rate [ Apical] Pulse Rate [ 90 Right Radial] Respiratory 18 Rate Respiratory 20 22 Rate [Anterior Bilateral] Blood Pressure [Left Arm] Blood Pressure 117/72 [Right Arm] O2 Sat by Pulse 100 Oximetry 07/26/16 07/26/16 07/26/16 06:16 07:00 07:55 Temperature 98.1 F Pulse Rate 102 H Pulse Rate [ 99 H Anterior Bilateral] Pulse Rate [ Apical] Pulse Rate [ 93 H Right Radial] Respiratory 18 Rate Respiratory 18 Rate [Anterior Bilateral] Blood Pressure [Left Arm] Blood Pressure 129/67 [Right Arm] O2 Sat by Pulse 99 Oximetry 07/26/16 07/26/16 07/26/16 07:58 08:06 09:07 Temperature 98.4 F Pulse Rate Pulse Rate [ 95 H Anterior Bilateral] Pulse Rate [ Apical] Pulse Rate [ 101 H Right Radial] Respiratory 18 Rate Respiratory 18 Rate [Anterior Bilateral] Blood Pressure 131/64 [Left Arm] Blood Pressure [Right Arm] O2 Sat by Pulse 100 98 Oximetry 07/26/16 07/26/16 10:12 13:19 Temperature 98.6 F Pulse Rate Pulse Rate [ Anterior Bilateral] Pulse Rate [ 101 H Apical] Pulse Rate [ 101 H Right Radial] Respiratory 18 18 Rate Respiratory Rate [Anterior Bilateral] Blood Pressure [Left Arm] Blood Pressure 121/73 [Right Arm] O2 Sat by Pulse 98 96 Oximetry Constitutional: no acute distress, alert Eyes: non-icteric ENT: oropharynx moist Neck: supple, no lymphadenopathy Ascultation: Bilateral: other (Bilateral breath sounds heard.) Cardiovascular: regular rate and rhythm Gastrointestinal: normoactive bowel sounds Integumentary: normal Extremities: no cyanosis, no edema Neurologic: normal mental status, non-focal exam, pupils equal and round, CN II- XII normal Psychiatric: mood appropriate CBC and BMP: 07/23/16 09:50 07/23/16 09:50 ABG, PT/INR, D-dimer: PT/INR, D-dimer PT 13.7 Sec. (12.2-14.9) 07/23/16 09:50 INR 1.06 (0.87-1.13) 07/23/16 09:50 Chest x-ray: report reviewed (Expansion of left lung. Chest tube in place.), image reviewed CT scan - chest: report reviewed, image reviewed (Expansion of left lung. Chest tube in place.)
[2016-07-26] MEDS: TYLENOL PO PRN (20:21)
[2016-07-26] MEDS: ROBITUSSIN DM PO PRN (22:29)
[2016-07-27] MEDS: PERCOCET 5/325 PO PRN ×2 (00:26→20:04)
[2016-07-27] MEDS: DUONEB 0.5 MG-3 MG/3 ML SOLN IH SCH ×4 (01:50→20:41)
--- NOTE | 2016-07-27 05:47 | Progress Note ---
Assessment and Plan - Patient Problems (1) Acute respiratory failure Current Visit: Yes Status: Resolved Plan to address problem: Secondary to pneumothorax. S/P chest tube placement. (2) Tension pneumothorax Current Visit: Yes Status: Acute Plan to address problem: Chest tube in place, No air leak. (3) Asthma, extrinsic Current Visit: Yes Status: Acute Qualifiers: Qualified Code(s): J45.52 - Severe persistent asthma with status asthmaticus Plan to address problem: supplemental oxygen, nebs prn. (4) Tobacco abuse disorder Current Visit: Yes Status: Chronic Plan to address problem: Pt counseled regarding cessation. (5) Obesity (BMI 30.0-34.9) Current Visit: Yes Status: Acute Plan to address problem: Pt counseled. (6) DVT prophylaxis Current Visit: Yes Status: Acute History Interval history: Pt sitting on side of bed, Pt denies any new complaints. Pt states that she has cough, Pt denies shortness of breath. Left chest tube in place. Hospitalist Physical - Constitutional Vitals: Temp Pulse Resp BP Pulse Ox 98.3 F 99 H 18 106/63 100 07/27/16 05:36 07/27/16 05:36 07/27/16 05:36 07/27/16 05:36 07/27/16 05:36 General appearance: Present: no acute distress, obese - EENT Eyes: Present: PERRL, EOM intact ENT: hearing intact - Neck Neck: Present: supple - Respiratory Respiratory: bilateral: diminished - Cardiovascular Rhythm: regular Heart Sounds: Present: S1 & S2 - Extremities Extremities: no ischemia Peripheral Pulses: within normal limits - Abdominal General gastrointestinal: soft, non-tender, non-distended - Integumentary Integumentary: Present: clear, warm, dry - Psychiatric Psychiatric: appropriate mood/affect, cooperative - Neurologic Neurologic: CNII-XII intact Results - Labs CBC & Chem 7: 07/23/16 09:50 07/23/16 09:50 Labs: Laboratory Last Values WBC 14.9 K/mm3 (4.5-11.0) H 07/23/16 09:50 RBC 4.84 M/mm3 (3.65-5.03) 07/23/16 09:50 Hgb 13.7 gm/dl (10.1-14.3) 07/23/16 09:50 Hct 39.6 % (30.3-42.9) 07/23/16 09:50 MCV 82 fl (79-97) 07/23/16 09:50 MCH 28 pg (28-32) 07/23/16 09:50 MCHC 35 % (30-34) H 07/23/16 09:50 RDW 14.3 % (13.2-15.2) 07/23/16 09:50 Plt Count 346 K/mm3 (140-440) 07/23/16 09:50 Lymph % (Auto) 4.8 % (13.4-35.0) L 07/23/16 09:50 [place] % (Auto) 7.5 % (0.0-7.3) H 07/23/16 09:50 Eos % (Auto) 0.7 % (0.0-4.3) 07/23/16 09:50 Baso % (Auto) 0.4 % (0.0-1.8) 07/23/16 09:50 Lymph # 0.7 K/mm3 (1.2-5.4) L 07/23/16 09:50 [place] # 1.1 K/mm3 (0.0-0.8) H 07/23/16 09:50 Eos # 0.1 K/mm3 (0.0-0.4) 07/23/16 09:50 Baso # 0.1 K/mm3 (0.0-0.1) 07/23/16 09:50 Seg Neutrophils % 86.6 % (40.0-70.0) H 07/23/16 09:50 Seg Neutrophils # 12.9 K/mm3 (1.8-7.7) H 07/23/16 09:50 PT 13.7 Sec. (12.2-14.9) 07/23/16 09:50 INR 1.06 (0.87-1.13) 07/23/16 09:50 APTT 30.2 Sec. (24.2-36.6) 07/23/16 09:50 Sodium 134 mmol/L (137-145) L 07/23/16 09:50 Potassium 3.3 mmol/L (3.6-5.0) L 07/23/16 09:50 Chloride 95.1 mmol/L (98-107) L 07/23/16 09:50 Carbon Dioxide 26 mmol/L (22-30) 07/23/16 09:50 Anion Gap 16 mmol/L 07/23/16 09:50 BUN 8 mg/dL (7-17) 07/23/16 09:50 Creatinine 0.6 mg/dL (0.7-1.2) L 07/23/16 09:50 Estimated GFR > 60 ml/min 07/23/16 09:50 BUN/Creatinine Ratio 13.33 % 07/23/16 09:50 Glucose 101 mg/dL (65-100) H 07/23/16 09:50 Calcium 8.7 mg/dL (8.4-10.2) 07/23/16 09:50 Magnesium 1.9 mg/dL (1.7-2.3) 07/23/16 09:50 Total Bilirubin 0.4 mg/dL (0.1-1.2) 07/23/16 09:50 Direct Bilirubin < 0.2 mg/dL (0-0.2) 07/23/16 09:50 Indirect Bilirubin 0.2 mg/dL 07/23/16 09:50 AST 23 units/L (5-40) 07/23/16 09:50 ALT 14 units/L (7-56) 07/23/16 09:50 Alkaline Phosphatase 45 units/L (35-129) 07/23/16 09:50 Total Creatine Kinase 199 units/L (30-135) H 07/23/16 09:50 CK-MB (CK-2) 2.6 ng/mL (0.0-4.0) 07/23/16 09:50 CK-MB (CK-2) Rel Index 1.3 (0-4) 07/23/16 09:50 Troponin T < 0.010 ng/mL (0.00-0.029) 07/23/16 09:50 Total Protein 7.4 g/dL (6.3-8.2) 07/23/16 09:50 Albumin 4.0 g/dL (3.9-5) 07/23/16 09:50 Albumin/Globulin Ratio 1.2 % 07/23/16 09:50 Urine Opiates Screen Presumptive negative 07/23/16 10:31 Urine Methadone Screen Presumptive negative 07/23/16 10:31 Ur Barbiturates Screen Presumptive negative 07/23/16 10:31 Ur Phencyclidine Scrn Presumptive negative 07/23/16 10:31 Ur Amphetamines Screen Presumptive negative 07/23/16 10:31 U Benzodiazepines Scrn Presumptive negative 07/23/16 10:31 Urine Cocaine Screen Presumptive negative 07/23/16 10:31 U Marijuana (THC) Screen Presumptive negative 07/23/16 10:31 Drugs of Abuse Note Disclamer 07/23/16 10:31 Rheumatoid Factor 11 IU/ml (0-13) 07/24/16 18:09
[2016-07-27] MEDS: TYLENOL PO PRN ×2 (06:51→13:08)
--- NOTE | 2016-07-27 09:10 | XRay Report ---
PORTABLE CHEST INDICATION: Followup pneumothorax. Chest tube to water seal. COMPARISON: 07/24/2016 FINDINGS: Portable, frontal chest radiograph again demonstrates a small bore left chest tube tip projecting left paratracheal. No pneumothorax, though mild bibasilar densities representing atelectasis and/or pleural fluid are new, partly obscuring the hemidiaphragms. No CHF. Stable cardiomediastinal silhouette, EKG leads and osseous structures. CONCLUSION: New mild bibasilar densities, as described with stable left chest tube. No pneumothorax. Thank you for the opportunity to participate in this patient's care.
--- NOTE | 2016-07-27 09:22 | Progress Note ---
Assessment and Plan Assessment and plan: (1) Acute respiratory failure Current Visit: Yes Status: Resolved Plan to address problem: Secondary to pneumothorax. S/P chest tube placement. (2) Tension pneumothorax Current Visit: Yes Status: Acute Plan to address problem: Chest tube in place, No air leak. (3) Asthma, extrinsic Current Visit: Yes Status: Acute Qualifiers: Qualified Code(s): J45.52 - Severe persistent asthma with status asthmaticus Plan to address problem: supplemental oxygen, nebs prn. (4) Tobacco abuse disorder Current Visit: Yes Status: Chronic Plan to address problem: Pt counseled regarding cessation. (5) Obesity (BMI 30.0-34.9) Current Visit: Yes Status: Acute Plan to address problem: Pt counseled. (6) DVT prophylaxis Current Visit: Yes Status: Acute History Interval history: No new complaints, no nursing issues overnight. Hospitalist Physical - Physical exam Narrative exam: Not in cardiopulmonary distress. The patient appeared well nourished and normally developed. Vital signs as documented. Head exam is unremarkable. No scleral icterus . Neck is without jugular venous distension, thyromegaly, or carotid bruits. Lung chest tube on the left side. Cardiac exam reveals regular rate and Rhythm. First and second heart sounds normal. No murmurs, rubs or gallops. Abdominal exam reveals normal bowel sounds, no masses, no organomegaly and no aortic enlargement. Extremities are nonedematous and both femoral and pedal pulses are normal. 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 No focal weakness. - Constitutional Vitals: Temp Pulse Resp BP Pulse Ox 98.5 F 86 16 119/87 98 07/27/16 07:37 07/27/16 09:04 07/27/16 09:04 07/27/16 07:37 07/27/16 07:53 General appearance: Present: no acute distress, obese Results - Labs CBC & Chem 7: 07/23/16 09:50 07/23/16 09:50 Labs: Laboratory Last Values WBC 14.9 K/mm3 (4.5-11.0) H 07/23/16 09:50 RBC 4.84 M/mm3 (3.65-5.03) 07/23/16 09:50 Hgb 13.7 gm/dl (10.1-14.3) 07/23/16 09:50 Hct 39.6 % (30.3-42.9) 07/23/16 09:50 MCV 82 fl (79-97) 07/23/16 09:50 MCH 28 pg (28-32) 07/23/16 09:50 MCHC 35 % (30-34) H 07/23/16 09:50 RDW 14.3 % (13.2-15.2) 07/23/16 09:50 Plt Count 346 K/mm3 (140-440) 07/23/16 09:50 Lymph % (Auto) 4.8 % (13.4-35.0) L 07/23/16 09:50 [place] % (Auto) 7.5 % (0.0-7.3) H 07/23/16 09:50 Eos % (Auto) 0.7 % (0.0-4.3) 07/23/16 09:50 Baso % (Auto) 0.4 % (0.0-1.8) 07/23/16 09:50 Lymph # 0.7 K/mm3 (1.2-5.4) L 07/23/16 09:50 [place] # 1.1 K/mm3 (0.0-0.8) H 07/23/16 09:50 Eos # 0.1 K/mm3 (0.0-0.4) 07/23/16 09:50 Baso # 0.1 K/mm3 (0.0-0.1) 07/23/16 09:50 Seg Neutrophils % 86.6 % (40.0-70.0) H 07/23/16 09:50 Seg Neutrophils # 12.9 K/mm3 (1.8-7.7) H 07/23/16 09:50 PT 13.7 Sec. (12.2-14.9) 07/23/16 09:50 INR 1.06 (0.87-1.13) 07/23/16 09:50 APTT 30.2 Sec. (24.2-36.6) 07/23/16 09:50 Sodium 134 mmol/L (137-145) L 07/23/16 09:50 Potassium 3.3 mmol/L (3.6-5.0) L 07/23/16 09:50 Chloride 95.1 mmol/L (98-107) L 07/23/16 09:50 Carbon Dioxide 26 mmol/L (22-30) 07/23/16 09:50 Anion Gap 16 mmol/L 07/23/16 09:50 BUN 8 mg/dL (7-17) 07/23/16 09:50 Creatinine 0.6 mg/dL (0.7-1.2) L 07/23/16 09:50 Estimated GFR > 60 ml/min 07/23/16 09:50 BUN/Creatinine Ratio 13.33 % 07/23/16 09:50 Glucose 101 mg/dL (65-100) H 07/23/16 09:50 Calcium 8.7 mg/dL (8.4-10.2) 07/23/16 09:50 Magnesium 1.9 mg/dL (1.7-2.3) 07/23/16 09:50 Total Bilirubin 0.4 mg/dL (0.1-1.2) 07/23/16 09:50 Direct Bilirubin < 0.2 mg/dL (0-0.2) 07/23/16 09:50 Indirect Bilirubin 0.2 mg/dL 07/23/16 09:50 AST 23 units/L (5-40) 07/23/16 09:50 ALT 14 units/L (7-56) 07/23/16 09:50 Alkaline Phosphatase 45 units/L (35-129) 07/23/16 09:50 Total Creatine Kinase 199 units/L (30-135) H 07/23/16 09:50 CK-MB (CK-2) 2.6 ng/mL (0.0-4.0) 07/23/16 09:50 CK-MB (CK-2) Rel Index 1.3 (0-4) 07/23/16 09:50 Troponin T < 0.010 ng/mL (0.00-0.029) 07/23/16 09:50 Total Protein 7.4 g/dL (6.3-8.2) 07/23/16 09:50 Albumin 4.0 g/dL (3.9-5) 07/23/16 09:50 Albumin/Globulin Ratio 1.2 % 07/23/16 09:50 Urine Opiates Screen Presumptive negative 07/23/16 10:31 Urine Methadone Screen Presumptive negative 07/23/16 10:31 Ur Barbiturates Screen Presumptive negative 07/23/16 10:31 Ur Phencyclidine Scrn Presumptive negative 07/23/16 10:31 Ur Amphetamines Screen Presumptive negative 07/23/16 10:31 U Benzodiazepines Scrn Presumptive negative 07/23/16 10:31 Urine Cocaine Screen Presumptive negative 07/23/16 10:31 U Marijuana (THC) Screen Presumptive negative 07/23/16 10:31 Drugs of Abuse Note Disclamer 07/23/16 10:31 Rheumatoid Factor 11 IU/ml (0-13) 07/24/16 18:09
[2016-07-27] MEDS: ZITHROMAX PO SCH (10:14)
[2016-07-27] MEDS: HCTZ PO SCH (10:14)
[2016-07-27] MEDS: COZAAR PO SCH (10:15)
[2016-07-27] MEDS: ZESTRIL PO SCH (10:15)
[2016-07-27] MEDS: ROBITUSSIN DM PO PRN (13:09)
--- NOTE | 2016-07-27 14:34 | Progress Note ---
Assessment and Plan Patient alert, awake. No acute respiratory distress. O2 satuaration. Todays chest xray appears left lung remianed expanded. Chest tube in place. May stop the Suction tommorrow and get chest xray. - Patient Problems (1) Tension pneumothorax Current Visit: Yes Status: Acute Plan to address problem: Patient has left chest tube placement.Left lung is expanded. Bilateral breathsounds heard. Todays chest xray still pending. Continue Chest tube to wall suction. 07/27/16 Stop chest tube suction tomorrow and repeat chest xray. (2) Asthma, extrinsic Current Visit: Yes Status: Acute Qualifiers: Qualified Code(s): J45.52 - Severe persistent asthma with status asthmaticus Plan to address problem: Albuterol/atrovent aerosol treatments. (3) Tobacco abuse disorder Current Visit: Yes Status: Chronic Plan to address problem: Counselled to stop smoking. (4) Acute bronchitis Current Visit: Yes Status: Acute Plan to address problem: Patient is on Zithromax. Subjective Date of service: 07/27/16 Interval history: Patient alert, awake. No acute respiratory distress. O2 satuaration. Todays chest xray appears left lung remianed expanded. Chest tube in place. May stop the Suction tommorrow and get chest xray. Objective Vital Signs - 12hr 07/27/16 07/27/16 07/27/16 04:00 05:36 07:37 Temperature 98.3 F 98.5 F Pulse Rate 90 Pulse Rate [ Anterior Bilateral] Pulse Rate [ 99 H Apical] Pulse Rate [ 95 H Right Radial] Respiratory 18 18 Rate Respiratory Rate [Anterior Bilateral] Blood Pressure 106/63 119/87 [Right Arm] O2 Sat by Pulse 100 98 Oximetry 07/27/16 07/27/16 07/27/16 07:53 09:04 11:34 Temperature 98.8 F Pulse Rate Pulse Rate [ 84 86 Anterior Bilateral] Pulse Rate [ Apical] Pulse Rate [ 99 H Right Radial] Respiratory 18 Rate Respiratory 16 16 Rate [Anterior Bilateral] Blood Pressure 121/74 [Right Arm] O2 Sat by Pulse 98 100 Oximetry 07/27/16 07/27/16 13:38 13:53 Temperature Pulse Rate Pulse Rate [ 84 88 Anterior Bilateral] Pulse Rate [ Apical] Pulse Rate [ Right Radial] Respiratory Rate Respiratory 16 16 Rate [Anterior Bilateral] Blood Pressure [Right Arm] O2 Sat by Pulse Oximetry Constitutional: no acute distress, alert Eyes: non-icteric ENT: oropharynx moist Neck: supple, no lymphadenopathy Ascultation: Bilateral: other (Bilateral breath sounds heard.) Cardiovascular: regular rate and rhythm Gastrointestinal: normoactive bowel sounds Integumentary: normal Extremities: no cyanosis, no edema Neurologic: normal mental status, non-focal exam, pupils equal and round, CN II- XII normal Psychiatric: mood appropriate CBC and BMP: 07/23/16 09:50 07/23/16 09:50 ABG, PT/INR, D-dimer: PT/INR, D-dimer PT 13.7 Sec. (12.2-14.9) 07/23/16 09:50 INR 1.06 (0.87-1.13) 07/23/16 09:50
[2016-07-27] MEDS ORDERED: PROVENTIL IH PRN (20:47)
[2016-07-28] MEDS: DUONEB 0.5 MG-3 MG/3 ML SOLN IH SCH ×3 (08:03→20:25)
[2016-07-28] MEDS: ZESTRIL PO SCH (09:31)
[2016-07-28] MEDS: COZAAR PO SCH (09:32)
[2016-07-28] MEDS: HCTZ PO SCH (09:32)
[2016-07-28] MEDS: ZITHROMAX PO SCH (09:33)
--- NOTE | 2016-07-28 09:41 | XRay Report ---
AP CHEST: HISTORY: Follow-up left pneumothorax. FINDINGS: The left chest tube is unchanged in position terminating near the medial left apex. No residual or recurrent left pneumothorax is visualized. Minimal left basilar atelectasis has decreased. The right lung is clear. Normal heart size. IMPRESSION: No residual left pneumothorax is detected.
[2016-07-28 11:00] LABS: Myeloperoxidase Antibody <1.0 AI (<1.0)
[2016-07-28] MEDS: PERCOCET 5/325 PO PRN ×2 (13:25→23:49)
[2016-07-28] MEDS: ROBITUSSIN DM PO PRN ×2 (13:37→23:50)
--- NOTE | 2016-07-28 17:21 | Progress Note ---
Assessment and Plan Patient alert, awake. No acute respiratory distress.Sitting up in chair. O2 satuaration 97% on 3 litres O2. Todays chest xray appears left lung is expanded. Chest tube in place.No complaint of chest pain or shortness of breath. Patients chest tube suction stopped this morning. Repeating chest xray now. - Patient Problems (1) Tension pneumothorax Current Visit: Yes Status: Acute Plan to address problem: Patient has left chest tube placement.Left lung is expanded. Bilateral breathsounds heard. Todays chest xray still pending. Continue Chest tube to wall suction. 07/27/16 Stop chest tube suction tomorrow and repeat chest xray. 07/28/16 Patients chest tube suction stopped this morning. No complaint of chest pain or shortness of breath. Repeating chest xray. (2) Asthma, extrinsic Current Visit: Yes Status: Acute Qualifiers: Qualified Code(s): J45.52 - Severe persistent asthma with status asthmaticus Plan to address problem: Albuterol/atrovent aerosol treatments. (3) Tobacco abuse disorder Current Visit: Yes Status: Chronic Plan to address problem: Counselled to stop smoking. (4) Acute bronchitis Current Visit: Yes Status: Acute Plan to address problem: Patient is on Zithromax. Subjective Date of service: 07/28/16 Interval history: Patient alert, awake. No acute respiratory distress.Sitting up in chair. O2 satuaration 97% on 3 litres O2. Todays chest xray appears left lung is expanded. Chest tube in place.No complaint of chest pain or shortness of breath. Patients chest tube suction stopped this morning. Repeating chest xray now. Objective Vital Signs - 12hr 07/28/16 07/28/16 07/28/16 05:27 08:03 08:09 Temperature 98.2 F 98.5 F Pulse Rate Pulse Rate [ 92 H Anterior Bilateral] Pulse Rate [ 99 H Apical] Pulse Rate [ 103 H Right Radial] Respiratory 18 18 Rate Respiratory 20 Rate [Anterior Bilateral] Blood Pressure Blood Pressure 105/65 114/67 [Right Arm] O2 Sat by Pulse 97 96 Oximetry 07/28/16 07/28/16 07/28/16 08:15 09:31 09:32 Temperature Pulse Rate 103 H 103 H Pulse Rate [ 95 H Anterior Bilateral] Pulse Rate [ Apical] Pulse Rate [ Right Radial] Respiratory Rate Respiratory 17 Rate [Anterior Bilateral] Blood Pressure 114/67 114/67 Blood Pressure [Right Arm] O2 Sat by Pulse Oximetry 07/28/16 07/28/16 07/28/16 10:00 12:22 14:00 Temperature 98.4 F Pulse Rate Pulse Rate [ 89 Anterior Bilateral] Pulse Rate [ Apical] Pulse Rate [ 101 H Right Radial] Respiratory 18 Rate Respiratory 20 Rate [Anterior Bilateral] Blood Pressure Blood Pressure 128/62 [Right Arm] O2 Sat by Pulse 97 97 Oximetry 07/28/16 16:16 Temperature 98.0 F Pulse Rate Pulse Rate [ Anterior Bilateral] Pulse Rate [ Apical] Pulse Rate [ 94 H Right Radial] Respiratory 18 Rate Respiratory Rate [Anterior Bilateral] Blood Pressure Blood Pressure 105/56 [Right Arm] O2 Sat by Pulse 99 Oximetry Constitutional: no acute distress, alert Eyes: non-icteric ENT: oropharynx moist Neck: supple, no lymphadenopathy Ascultation: Bilateral: other (Bilateral breath sounds heard.) Cardiovascular: regular rate and rhythm Gastrointestinal: normoactive bowel sounds Integumentary: normal Extremities: no cyanosis, no edema Neurologic: normal mental status, non-focal exam, pupils equal and round, CN II- XII normal Psychiatric: mood appropriate CBC and BMP: 07/23/16 09:50 07/23/16 09:50 ABG, PT/INR, D-dimer: PT/INR, D-dimer PT 13.7 Sec. (12.2-14.9) 07/23/16 09:50 INR 1.06 (0.87-1.13) 07/23/16 09:50 Chest x-ray: report reviewed (left lung expanded, No pneumothorax.), image reviewed
--- NOTE | 2016-07-28 18:21 | Progress Note ---
Assessment and Plan Assessment and plan: (1) Acute respiratory failure Current Visit: Yes Status: Resolved Plan to address problem: Secondary to pneumothorax. S/P chest tube placement. (2) Tension pneumothorax Current Visit: Yes Status: Acute Plan to address problem: Chest tube in place, No air leak. (3) Asthma, extrinsic Current Visit: Yes Status: Acute Qualifiers: Qualified Code(s): J45.52 - Severe persistent asthma with status asthmaticus Plan to address problem: supplemental oxygen, nebs prn. (4) Tobacco abuse disorder Current Visit: Yes Status: Chronic Plan to address problem: Pt counseled regarding cessation. (5) Obesity (BMI 30.0-34.9) Current Visit: Yes Status: Acute Plan to address problem: Pt counseled. (6) DVT prophylaxis Current Visit: Yes Status: Acute History Interval history: No new complaints, no nursing issues overnight. Hospitalist Physical - Physical exam Narrative exam: Not in cardiopulmonary distress. The patient appeared well nourished and normally developed. Vital signs as documented. Head exam is unremarkable. No scleral icterus . Neck is without jugular venous distension, thyromegaly, or carotid bruits. Lung chest tube on the left side. Cardiac exam reveals regular rate and Rhythm. First and second heart sounds normal. No murmurs, rubs or gallops. Abdominal exam reveals normal bowel sounds, no masses, no organomegaly and no aortic enlargement. Extremities are nonedematous and both femoral and pedal pulses are normal. 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 No focal weakness. - Constitutional Vitals: Temp Pulse Resp BP Pulse Ox 98.0 F 94 H 18 105/56 99 07/28/16 16:16 07/28/16 16:16 07/28/16 16:16 07/28/16 16:16 07/28/16 16:16 General appearance: Present: no acute distress, obese Results - Labs CBC & Chem 7: 07/23/16 09:50 07/23/16 09:50 Labs: Laboratory Last Values WBC 14.9 K/mm3 (4.5-11.0) H 07/23/16 09:50 RBC 4.84 M/mm3 (3.65-5.03) 07/23/16 09:50 Hgb 13.7 gm/dl (10.1-14.3) 07/23/16 09:50 Hct 39.6 % (30.3-42.9) 07/23/16 09:50 MCV 82 fl (79-97) 07/23/16 09:50 MCH 28 pg (28-32) 07/23/16 09:50 MCHC 35 % (30-34) H 07/23/16 09:50 RDW 14.3 % (13.2-15.2) 07/23/16 09:50 Plt Count 346 K/mm3 (140-440) 07/23/16 09:50 Lymph % (Auto) 4.8 % (13.4-35.0) L 07/23/16 09:50 [place] % (Auto) 7.5 % (0.0-7.3) H 07/23/16 09:50 Eos % (Auto) 0.7 % (0.0-4.3) 07/23/16 09:50 Baso % (Auto) 0.4 % (0.0-1.8) 07/23/16 09:50 Lymph # 0.7 K/mm3 (1.2-5.4) L 07/23/16 09:50 [place] # 1.1 K/mm3 (0.0-0.8) H 07/23/16 09:50 Eos # 0.1 K/mm3 (0.0-0.4) 07/23/16 09:50 Baso # 0.1 K/mm3 (0.0-0.1) 07/23/16 09:50 Seg Neutrophils % 86.6 % (40.0-70.0) H 07/23/16 09:50 Seg Neutrophils # 12.9 K/mm3 (1.8-7.7) H 07/23/16 09:50 PT 13.7 Sec. (12.2-14.9) 07/23/16 09:50 INR 1.06 (0.87-1.13) 07/23/16 09:50 APTT 30.2 Sec. (24.2-36.6) 07/23/16 09:50 Lupus Anticoagulant see below (()) 07/24/16 18:09 Sodium 134 mmol/L (137-145) L 07/23/16 09:50 Potassium 3.3 mmol/L (3.6-5.0) L 07/23/16 09:50 Chloride 95.1 mmol/L (98-107) L 07/23/16 09:50 Carbon Dioxide 26 mmol/L (22-30) 07/23/16 09:50 Anion Gap 16 mmol/L 07/23/16 09:50 BUN 8 mg/dL (7-17) 07/23/16 09:50 Creatinine 0.6 mg/dL (0.7-1.2) L 07/23/16 09:50 Estimated GFR > 60 ml/min 07/23/16 09:50 BUN/Creatinine Ratio 13.33 % 07/23/16 09:50 Glucose 101 mg/dL (65-100) H 07/23/16 09:50 Calcium 8.7 mg/dL (8.4-10.2) 07/23/16 09:50 Magnesium 1.9 mg/dL (1.7-2.3) 07/23/16 09:50 Total Bilirubin 0.4 mg/dL (0.1-1.2) 07/23/16 09:50 Direct Bilirubin < 0.2 mg/dL (0-0.2) 07/23/16 09:50 Indirect Bilirubin 0.2 mg/dL 07/23/16 09:50 AST 23 units/L (5-40) 07/23/16 09:50 ALT 14 units/L (7-56) 07/23/16 09:50 Alkaline Phosphatase 45 units/L (35-129) 07/23/16 09:50 Total Creatine Kinase 199 units/L (30-135) H 07/23/16 09:50 CK-MB (CK-2) 2.6 ng/mL (0.0-4.0) 07/23/16 09:50 CK-MB (CK-2) Rel Index 1.3 (0-4) 07/23/16 09:50 Troponin T < 0.010 ng/mL (0.00-0.029) 07/23/16 09:50 Total Protein 7.4 g/dL (6.3-8.2) 07/23/16 09:50 Albumin 4.0 g/dL (3.9-5) 07/23/16 09:50 Albumin/Globulin Ratio 1.2 % 07/23/16 09:50 Urine Opiates Screen Presumptive negative 07/23/16 10:31 Urine Methadone Screen Presumptive negative 07/23/16 10:31 Ur Barbiturates Screen Presumptive negative 07/23/16 10:31 Ur Phencyclidine Scrn Presumptive negative 07/23/16 10:31 Ur Amphetamines Screen Presumptive negative 07/23/16 10:31 U Benzodiazepines Scrn Presumptive negative 07/23/16 10:31 Urine Cocaine Screen Presumptive negative 07/23/16 10:31 U Marijuana (THC) Screen Presumptive negative 07/23/16 10:31 Drugs of Abuse Note Disclamer 07/23/16 10:31 Rheumatoid Factor 11 IU/ml (0-13) 07/24/16 18:09 PAULINO Screen Negative (Negative) 07/24/16 18:09 Proteinase 3 (PR3) Ab <1.0 AI (<1.0) 07/24/16 18:09 Myeloperoxidase Ab <1.0 AI (<1.0) 07/24/16 18:09 Double Strand DNA Ab <1 IU/mL (<=4) 07/24/16 18:09
[2016-07-29] MEDS: TYLENOL PO PRN (05:43)
[2016-07-29 06:05] LABS: Basophils % (Auto) 1.1 % (0.0-1.8); Eosinophils % (Auto) 7.3 % (0.0-4.3); Hematocrit 39.5 % (30.3-42.9); Hemoglobin 13.2 gm/dl (10.1-14.3); Mean Corpuscular HGB Conc 34 % (30-34); Mean Corpuscular Hemoglobin 27 pg (28-32); Mean Corpuscular Volume 82 fl (79-97); Platelet Count 357 K/mm3 (140-440); Red Blood Count 4.85 M/mm3 (3.65-5.03); Red Cell Distribution Width 14.6 % (13.2-15.2); White Blood Count 11.5 K/mm3 (4.5-11.0)
[2016-07-29 06:26] LABS: Anion Gap 15 mmol/L; BUN/Creatinine Ratio 18.33; Blood Urea Nitrogen 11 mg/dL (7-17); Calcium 8.5 mg/dL (8.4-10.2); Carbon Dioxide 28 mmol/L (22-30); Chloride 98.5 mmol/L (98-107); Glucose 90 mg/dL (65-100); Potassium 3.7 mmol/L (3.6-5.0); Sodium 138 mmol/L (137-145)
--- NOTE | 2016-07-29 08:23 | XRay Report ---
AP CHEST :07/28/16 18:12 CLINICAL: Follow up pneumothorax with chest tube. COMPARISON:Same day at 07:56 FINDINGS: The small caliber left apical chest tube is unchanged in position. There is a tiny left apical pneumothorax.Lungs are clear except for mild opacification in the left lung base with opacification of the left costophrenic angle. Normal heart and pulmonary vessels. IMPRESSION: A tiny left apical pneumothorax with a chest tube.
[2016-07-29] MEDS: DUONEB 0.5 MG-3 MG/3 ML SOLN IH SCH ×3 (08:40→19:31)
--- NOTE | 2016-07-29 10:01 | Progress Note ---
Assessment and Plan - Patient Problems (1) Tension pneumothorax Current Visit: Yes Status: Acute Plan to address problem: (With small recurrence of PTX on water seal we will need to clamp tube for approximately 4 hrs and repeat CXR) - if no significant increase in 4 hours / stability demonstrated we will pull chest tube today and observe overnight - if recurs / increases and clinically significant we will get surgery input for large bore chest tube placement - continue supplemental oxygen therapy (2) Acute respiratory failure Current Visit: Yes Status: Resolved Plan to address problem: - improved - as above Subjective Date of service: 07/29/16 Principal diagnosis: Spontaneous Pneumothorax; Acute Respiratory Distress Interval history: Seen and examined at bedside; 24 hour events reviewed; nursing and respiratory care staff consulted; no adverse overnight events reported to me; sitting in chair; denies acute chest pains or increased SOB; chest tube to water seal Objective Vital Signs - 12hr 07/28/16 07/29/16 07/29/16 23:49 00:17 00:49 Temperature 98.7 F Pulse Rate [ Anterior Bilateral] Pulse Rate [ 100 H Apical] Pulse Rate [ Right Radial] Respiratory 20 18 20 Rate Respiratory Rate [Anterior Bilateral] Blood Pressure 110/78 [Right Arm] O2 Sat by Pulse 94 Oximetry 07/29/16 07/29/16 07/29/16 05:06 05:43 06:43 Temperature 97.6 F Pulse Rate [ Anterior Bilateral] Pulse Rate [ 89 Apical] Pulse Rate [ Right Radial] Respiratory 18 20 18 Rate Respiratory Rate [Anterior Bilateral] Blood Pressure 101/55 [Right Arm] O2 Sat by Pulse 99 Oximetry 07/29/16 07/29/16 07/29/16 08:40 08:43 09:15 Temperature 97.8 F Pulse Rate [ 104 H Anterior Bilateral] Pulse Rate [ Apical] Pulse Rate [ 117 H Right Radial] Respiratory 20 Rate Respiratory 18 Rate [Anterior Bilateral] Blood Pressure 121/67 [Right Arm] O2 Sat by Pulse 100 98 Oximetry Constitutional: no acute distress, alert Eyes: non-icteric ENT: oropharynx moist Neck: supple, no lymphadenopathy Effort: normal Ascultation: Bilateral: clear Cardiovascular: regular rate and rhythm Gastrointestinal: normoactive bowel sounds, soft, non-tender, non-distended Integumentary: normal Extremities: no cyanosis, no edema, pulses normal, no ischemia or petechiae Neurologic: normal mental status, non-focal exam, pupils equal and round, CN II- XII normal Psychiatric: mood appropriate, affect normal CBC and BMP: 07/29/16 05:34 07/29/16 05:34 ABG, PT/INR, D-dimer: PT/INR, D-dimer PT 13.7 Sec. (12.2-14.9) 07/23/16 09:50 INR 1.06 (0.87-1.13) 07/23/16 09:50 Abnormal lab findings: Abnormal Labs 07/29/16 07/29/16 05:34 05:34 WBC 11.5 H MCH 27 L [place] % (Auto) 9.9 H Eos % (Auto) 7.3 H [place] # 1.1 H Eos # 0.8 H Creatinine 0.6 L Chest x-ray: image reviewed
[2016-07-29] MEDS: COZAAR PO SCH (10:43)
[2016-07-29] MEDS: HCTZ PO SCH (10:43)
[2016-07-29] MEDS: ZITHROMAX PO SCH (10:48)
[2016-07-29] MEDS: ZESTRIL PO SCH (10:49)
--- NOTE | 2016-07-29 15:02 | XRay Report ---
AP CHEST: HISTORY: Followup pneumothorax AP view of the chest demonstrates a normal mediastinal and cardiac contour with clear lungs and normal bony and soft tissue structures. The left chest tube is unchanged in position since yesterday's exam. IMPRESSION: Unremarkable AP chest. No recurrent pneumothorax.
--- NOTE | 2016-07-29 16:39 | Progress Note ---
Assessment and Plan Assessment and plan: (1) Acute respiratory failure - Secondary to pneumothorax. S/P chest tube placement. - Will clump and CXR and if the patient tolerated well will D/C the tube monitor overnight (2) Tension pneumothorax - Chest tube in place, No air leak. (3) Asthma, extrinsic - supplemental oxygen, nebs prn. (4) Tobacco abuse disorder - Pt counseled regarding cessation. (5) Obesity (BMI 30.0-34.9) - Pt counseled. (6) DVT prophylaxis Current Visit: Yes Status: Acute Disposition Plan: Will consider after we D/massimo the chest tube. History Interval history: No new complaints, no nursing issues overnight, no breathing difficulties. Hospitalist Physical - Physical exam Narrative exam: Not in cardiopulmonary distress. The patient appeared well nourished and normally developed. Vital signs as documented. Head exam is unremarkable. No scleral icterus . Neck is without jugular venous distension, thyromegaly, or carotid bruits. Lung chest tube on the left side, coarse breath sound is on the posterior left lung field. Cardiac exam reveals regular rate and Rhythm. First and second heart sounds normal. No murmurs, rubs or gallops. Abdominal exam reveals normal bowel sounds, no masses, no organomegaly and no aortic enlargement. Extremities are nonedematous and both femoral and pedal pulses are normal. 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 No focal weakness. - Constitutional Vitals: Temp Pulse Resp BP Pulse Ox 98.3 F 102 H 18 120/76 98 07/29/16 12:31 07/29/16 14:05 07/29/16 14:05 07/29/16 12:31 07/29/16 12:31 General appearance: Present: no acute distress, obese Results - Labs CBC & Chem 7: 07/29/16 05:34 07/29/16 05:34 Labs: Laboratory Last Values WBC 11.5 K/mm3 (4.5-11.0) H 07/29/16 05:34 RBC 4.85 M/mm3 (3.65-5.03) 07/29/16 05:34 Hgb 13.2 gm/dl (10.1-14.3) 07/29/16 05:34 Hct 39.5 % (30.3-42.9) 07/29/16 05:34 MCV 82 fl (79-97) 07/29/16 05:34 MCH 27 pg (28-32) L 07/29/16 05:34 MCHC 34 % (30-34) 07/29/16 05:34 RDW 14.6 % (13.2-15.2) 07/29/16 05:34 Plt Count 357 K/mm3 (140-440) 07/29/16 05:34 Lymph % (Auto) 29.6 % (13.4-35.0) 07/29/16 05:34 [place] % (Auto) 9.9 % (0.0-7.3) H 07/29/16 05:34 Eos % (Auto) 7.3 % (0.0-4.3) H 07/29/16 05:34 Baso % (Auto) 1.1 % (0.0-1.8) 07/29/16 05:34 Lymph # 3.4 K/mm3 (1.2-5.4) 07/29/16 05:34 [place] # 1.1 K/mm3 (0.0-0.8) H 07/29/16 05:34 Eos # 0.8 K/mm3 (0.0-0.4) H 07/29/16 05:34 Baso # 0.1 K/mm3 (0.0-0.1) 07/29/16 05:34 Seg Neutrophils % 52.1 % (40.0-70.0) 07/29/16 05:34 Seg Neutrophils # 6.0 K/mm3 (1.8-7.7) 07/29/16 05:34 PT 13.7 Sec. (12.2-14.9) 07/23/16 09:50 INR 1.06 (0.87-1.13) 07/23/16 09:50 APTT 30.2 Sec. (24.2-36.6) 07/23/16 09:50 Lupus Anticoagulant see below (()) 07/24/16 18:09 LA PTT Baseline See scanned report 07/24/16 18:09 dRVVT Screen 50:50 See scanned report 07/24/16 18:09 dRVVT Mix Interpret See scanned report 07/24/16 18:09 Sodium 138 mmol/L (137-145) 07/29/16 05:34 Potassium 3.7 mmol/L (3.6-5.0) 07/29/16 05:34 Chloride 98.5 mmol/L (98-107) 07/29/16 05:34 Carbon Dioxide 28 mmol/L (22-30) 07/29/16 05:34 Anion Gap 15 mmol/L 07/29/16 05:34 BUN 11 mg/dL (7-17) 07/29/16 05:34 Creatinine 0.6 mg/dL (0.7-1.2) L 07/29/16 05:34 Estimated GFR > 60 ml/min 07/29/16 05:34 BUN/Creatinine Ratio 18.33 % 07/29/16 05:34 Glucose 90 mg/dL (65-100) 07/29/16 05:34 Calcium 8.5 mg/dL (8.4-10.2) 07/29/16 05:34 Magnesium 1.9 mg/dL (1.7-2.3) 07/23/16 09:50 Total Bilirubin 0.4 mg/dL (0.1-1.2) 07/23/16 09:50 Direct Bilirubin < 0.2 mg/dL (0-0.2) 07/23/16 09:50 Indirect Bilirubin 0.2 mg/dL 07/23/16 09:50 AST 23 units/L (5-40) 07/23/16 09:50 ALT 14 units/L (7-56) 07/23/16 09:50 Alkaline Phosphatase 45 units/L (35-129) 07/23/16 09:50 Total Creatine Kinase 199 units/L (30-135) H 07/23/16 09:50 CK-MB (CK-2) 2.6 ng/mL (0.0-4.0) 07/23/16 09:50 CK-MB (CK-2) Rel Index 1.3 (0-4) 07/23/16 09:50 Troponin T < 0.010 ng/mL (0.00-0.029) 07/23/16 09:50 Total Protein 7.4 g/dL (6.3-8.2) 07/23/16 09:50 Albumin 4.0 g/dL (3.9-5) 07/23/16 09:50 Albumin/Globulin Ratio 1.2 % 07/23/16 09:50 Urine Opiates Screen Presumptive negative 07/23/16 10:31 Urine Methadone Screen Presumptive negative 07/23/16 10:31 Ur Barbiturates Screen Presumptive negative 07/23/16 10:31 Ur Phencyclidine Scrn Presumptive negative 07/23/16 10:31 Ur Amphetamines Screen Presumptive negative 07/23/16 10:31 U Benzodiazepines Scrn Presumptive negative 07/23/16 10:31 Urine Cocaine Screen Presumptive negative 07/23/16 10:31 U Marijuana (THC) Screen Presumptive negative 07/23/16 10:31 Drugs of Abuse Note Disclamer 07/23/16 10:31 Rheumatoid Factor 11 IU/ml (0-13) 07/24/16 18:09 PAULINO Screen Negative (Negative) 07/24/16 18:09 Proteinase 3 (PR3) Ab <1.0 AI (<1.0) 07/24/16 18:09 Myeloperoxidase Ab <1.0 AI (<1.0) 07/24/16 18:09 Double Strand DNA Ab <1 IU/mL (<=4) 07/24/16 18:09
--- NOTE | 2016-07-29 21:17 | Event Note ---
Date: 07/29/16 Chest tube pulled - repeat CXR in am and if no recurrence then discharge with 1 week f/up in clinic with Dr. Vicente
[2016-07-29] MEDS: ROBITUSSIN DM PO PRN (21:29)
[2016-07-29] MEDS: PERCOCET 5/325 PO PRN (21:30)
[2016-07-30] MEDS ORDERED: PERCOCET 5/325 PO ONE (01:30)
[2016-07-30] MEDS: PERCOCET 5/325 PO PRN (06:32)
[2016-07-30] MEDS: DUONEB 0.5 MG-3 MG/3 ML SOLN IH SCH (08:38)
--- NOTE | 2016-07-30 09:27 | XRay Report ---
SINGLE VIEW CHEST: Compared to 07/29/16. HISTORY: Pneumothorax. FINDINGS: Normal cardiomediastinal silhouette. Trachea is midline. No consolidation, pneumothorax or pleural effusion. IMPRESSION: No acute cardiopulmonary findings.
--- NOTE | 2016-07-30 10:18 | Progress Note ---
Assessment and Plan - Patient Problems (1) Tension pneumothorax Status: Acute Plan to address problem: - resolved (2) Acute respiratory failure Status: Resolved Qualifiers: Respiratory failure complication: R Plan to address problem: - resolved - d/c planning ok respiratory-lopez Subjective Date of service: 07/30/16 Principal diagnosis: Spontaneous Pneumothorax; Acute Respiratory Distress Interval history: Seen and examined at bedside; 24 hour events reviewed; nursing and respiratory care staff consulted; no adverse overnight events reported to me; doing well; denies acute chest pains or increased SOB Objective Vital Signs - 12hr 07/29/16 07/30/16 07/30/16 22:30 01:34 01:50 Temperature 98.0 F Pulse Rate [ Bilateral Throughout] Pulse Rate [ 87 Right Radial] Respiratory 20 20 20 Rate Respiratory Rate [Bilateral Throughout] Blood Pressure 95/50 [Right Arm] O2 Sat by Pulse 98 Oximetry 07/30/16 07/30/16 07/30/16 02:34 04:00 06:32 Temperature 98.0 F Pulse Rate [ Bilateral Throughout] Pulse Rate [ 93 H Right Radial] Respiratory 20 20 20 Rate Respiratory Rate [Bilateral Throughout] Blood Pressure 104/55 [Right Arm] O2 Sat by Pulse 98 Oximetry 07/30/16 07/30/16 07/30/16 08:37 08:38 08:41 Temperature Pulse Rate [ 86 Bilateral Throughout] Pulse Rate [ Right Radial] Respiratory Rate Respiratory 16 Rate [Bilateral Throughout] Blood Pressure [Right Arm] O2 Sat by Pulse 99 98 Oximetry 07/30/16 07/30/16 08:49 08:53 Temperature 97.9 F Pulse Rate [ 115 H Bilateral Throughout] Pulse Rate [ 84 Right Radial] Respiratory 18 Rate Respiratory 16 Rate [Bilateral Throughout] Blood Pressure 108/59 [Right Arm] O2 Sat by Pulse 97 Oximetry Constitutional: no acute distress, alert Eyes: non-icteric ENT: oropharynx moist Neck: supple, no lymphadenopathy Effort: normal Ascultation: Bilateral: clear, other (Bilateral breath sounds heard.) Cardiovascular: regular rate and rhythm Gastrointestinal: normoactive bowel sounds, soft, non-tender, non-distended Integumentary: normal Extremities: no cyanosis, no edema, pulses normal, no ischemia or petechiae Neurologic: normal mental status, non-focal exam, pupils equal and round, CN II- XII normal Psychiatric: mood appropriate, affect normal CBC and BMP: 07/29/16 05:34 07/29/16 05:34 ABG, PT/INR, D-dimer: PT/INR, D-dimer PT 13.7 Sec. (12.2-14.9) 07/23/16 09:50 INR 1.06 (0.87-1.13) 07/23/16 09:50 Abnormal lab findings: Abnormal Labs 07/29/16 07/29/16 05:34 05:34 WBC 11.5 H MCH 27 L [place] % (Auto) 9.9 H Eos % (Auto) 7.3 H [place] # 1.1 H Eos # 0.8 H Creatinine 0.6 L
--- NOTE | 2016-07-30 10:52 | Discharge Summary ---
Providers - Providers Date of Admission: 07/23/16 14:25 Date of discharge: 07/30/16 Attending physician: DAXA SCHMITT MD Primary care physician: [facility]US[facility] THERAPY NURSE Hospitalization Reason for admission: Tension pneumothorax Condition: Stable Procedures: Chest tube Hospital course: patient was admitted for tension pneumothorax, acute hypoxic respiratory failure after vigorous coughing and she was admitted and chest tube was placed and treated appropriately and ready to be discharged today. She is scheduled to see pulmonary in 1 week. Disposition: DISCHARGED TO HOME OR SELFCARE Time spent for discharge: 31 minutes - Discharge Diagnoses (1) Acute bronchitis Status: Acute (2) Asthma, extrinsic Status: Acute (3) Tension pneumothorax Status: Acute (4) Tobacco abuse disorder Status: Chronic (5) Acute respiratory failure Status: Resolved Core Measure Documentation - Palliative Care Palliative Care/ Comfort Measures: Not Applicable - Core Measures Any of the following diagnoses?: none Exam - Physical Exam Narrative exam: Not in cardiopulmonary distress. The patient appeared well nourished and normally developed. Vital signs as documented. Head exam is unremarkable. No scleral icterus . Neck is without jugular venous distension, thyromegaly, or carotid bruits. Lung coarse breath sound is on the posterior left lung field. Cardiac exam reveals regular rate and Rhythm. First and second heart sounds normal. No murmurs, rubs or gallops. Abdominal exam reveals normal bowel sounds, no masses, no organomegaly and no aortic enlargement. Extremities are nonedematous and both femoral and pedal pulses are normal. KITCHEN STEWARD: Alert and oriented 3. No focal weakness. - Constitutional Vitals: Temp Pulse Resp BP Pulse Ox 97.9 F 84 18 108/59 97 07/30/16 08:53 07/30/16 08:53 07/30/16 08:53 07/30/16 08:53 07/30/16 08:53 Plan Activity: no restrictions Diet: regular Follow up with: YASEMIN GR MD [Primary Care Provider] - 3-5 Days BRANNON MORA MD [Staff Physician] - 7 Days Prescriptions: Fluconazole [Diflucan TAB] 150 mg PO ONCE #1 tablet ALBUTEROL NEB's [Proventil 0.083% NEBS] 2.5 mg IH Q4HRT PRN #1 can PRN Reason: Shortness Of Breath guaiFENesin DM [Robitussin Dm] 10 ml PO Q6H PRN #1 bottle PRN Reason: Cough Ipratropium/Albuterol Sulfate [Duoneb 0.5 mg-3 mg/3 ml Soln] 1 ampul IH TIDRT # 30 ampul.neb
[2016-07-30] MEDS: COZAAR PO SCH (10:59)
[2016-07-30] MEDS: ZITHROMAX PO SCH (11:00)
[2016-07-30] MEDS: ZESTRIL PO SCH (11:00)
[2016-07-30] MEDS: HCTZ PO SCH (11:00)
[2016-07-30] MEDS ORDERED: PROVENTIL IH PRN (12:00)
[2016-07-30 13:02] VITALS: BP 109/61
[2016-07-30] MEDS ORDERED: DUONEB 0.5 MG-3 MG/3 ML SOLN IH SCH (14:00)
== END 2016-07-30 13:50 | disposition home or self-care (01) | DRG 199 ==
LOC: ED 08:49 → 4A 14:25
PROVIDERS: ADMIT Internal Medicine; ATTEND Internal Medicine
PROC: 0W9B30Z Drainage of Left Pleural Cavity with Drainage Device, Percutaneous Approach (ICD-10-PCS; principal; 2016-07-23)
DX: J93.0 Spontaneous tension pneumothorax (principal); J96.01 Acute respiratory failure with hypoxia; J45.52 Severe persistent asthma with status asthmaticus; E87.6 Hypokalemia; E66.9 Obesity, unspecified; F17.210 Nicotine dependence, cigarettes, uncomplicated; J20.9 Acute bronchitis, unspecified; I10 Essential (primary) hypertension; Z68.35 Body mass index [BMI] 35.0-35.9, adult; Z79.899 Other long term (current) drug therapy; Z88.8 Allergy status to other drugs, medicaments and biological substances
CPT/HCPCS: 36415; 71010; 71250; 80048; 80074; 80307; 82550; 82553; 83735; 84484; 85025; 85610; 85613; 85730; 86021; 86038; 86225; 86618; 90670; 90686; 93005; 93010; 94640; 94760; 96374; 96375; 96376; J1170; J1885; J2270; J2405; J2704; J7042

== ENCOUNTER 2016-08-27 08:05 | Outpatient (CLI) | payer BC ==
--- NOTE | 2016-08-27 16:12 | XRay Report ---
Chest 2 views: Compared to 07/30/16. History: History of pneumothorax. Findings: Normal cardiomediastinal silhouette. Trachea is midline. No consolidation, pneumothorax or pleural effusion. Impression: No acute cardiopulmonary findings.
== END 2016-08-27 08:06 | disposition home or self-care (01) ==
LOC: XRAY 08:05
PROVIDERS: ATTEND Internal Medicine
DX: Z87.09 Personal history of other diseases of the respiratory system (principal)
CPT/HCPCS: 71020

== ENCOUNTER 2021-09-10 14:24 | Outpatient (CLI) | payer BC ==
[2021-09-10 15:23] LABS: Basophils # (Auto) 0.1 K/mm3 (0.0-0.1); Basophils % (Auto) 0.9 % (0.0-1.8); Eosinophils # (Auto) 0.7 K/mm3 (0.0-0.4); Eosinophils % (Auto) 6.8 % (0.0-4.3); Hematocrit 40.2 % (30.3-42.9); Hemoglobin 13.8 gm/dl (10.1-14.3); Lymphocytes # (Auto) 3.4 K/mm3 (1.2-5.4); Lymphocytes % (Auto) 32.1 % (13.4-35.0); Mean Corpuscular HGB Conc 34 % (30-34); Mean Corpuscular Volume 83 fl (79-97); Monocytes % (Auto) 9.1 % (0.0-7.3); Platelet Count 394 K/mm3 (140-440); Red Blood Count 4.87 M/mm3 (3.65-5.03); Red Cell Distribution Width 13.7 % (13.2-15.2)
--- NOTE | 2021-09-10 15:45 | XRay Report ---
CHEST 2 VIEWS INDICATION / CLINICAL INFORMATION: J45.909 ASTHMA. COMPARISON: 07/30/16. FINDINGS: SUPPORT DEVICES: None. HEART / MEDIASTINUM: The heart size and pulmonary vasculature are normal. LUNGS / PLEURA: No significant pulmonary or pleural abnormality. No pneumothorax. ADDITIONAL FINDINGS: No significant additional findings. IMPRESSION: No acute findings. Signer Name: Papito Aranda MD Signed: 09/10/2021 3:32 PM Workstation Name: [id number]
[2021-09-10 15:48] LABS: Alanine Aminotransferase 8 units/L (7-56); Albumin 4.2 g/dL (3.9-5); BUN/Creatinine Ratio 14; Blood Urea Nitrogen 11 mg/dL (7-17); Calcium 9.2 mg/dL (8.4-10.2); Chol/HDL Ratio 2.35 %; HDL Cholesterol 77 mg/dL (40-59); Hemolysis Index 6; LDL Cholesterol,Direct 88 mg/dL (50-130)
== END 2021-09-10 14:25 | disposition home or self-care (01) ==
LOC: LAB 14:24
PROVIDERS: ATTEND Internal Medicine
DX: J45.909 Unspecified asthma, uncomplicated (principal); I10 Essential (primary) hypertension; Z68.35 Body mass index [BMI] 35.0-35.9, adult; Z86.16 Personal history of COVID-19
CPT/HCPCS: 36415; 71046; 80053; 80061; 82550; 82728; 82785; 83615; 84436; 84443; 84484; 85025; 85379; 86140